=== PATIENT | male | born 1960 | race Caucasian/White ===

== ENCOUNTER 2019-06-23 09:53 | Inpatient (IN) ==
--- NOTE | 2019-06-15 15:35 | EKG Report ---
Test Performed on : 06/15/2019 3:19:48 PM Test Reason : PAT Blood Pressure : / mmHG Vent. Rate : 092 BPM Atrial Rate : 092 BPM P-R Int : 154 ms QRS Dur : 094 ms QT Int : 396 ms P-R-T Axes : 053 037 082 degrees QTc Int : 489 ms Normal sinus rhythm. ST & T wave abnormality, consider lateral ischemia Prolonged QT Abnormal ECG No previous ECGs available Confirmed by Kin Ramsey MD ([id number]) on 06/16/2019 6:25:12 AM
[2019-06-23] MEDS ORDERED: KEFZOL 1 GM/D5W 2 GM/100 ML IVPB ONE (10:28)
[2019-06-23] MEDS ORDERED: LR 1,000 ML ONE ×2 (10:28→11:59)
--- NOTE | 2019-06-23 10:35 | EKG Report ---
Test Performed on : 06/23/2019 10:24:36 AM Test Reason : preop Blood Pressure : / mmHG Vent. Rate : 092 BPM Atrial Rate : 092 BPM P-R Int : 150 ms QRS Dur : 090 ms QT Int : 374 ms P-R-T Axes : 037 038 008 degrees QTc Int : 462 ms Normal sinus rhythm. Nonspecific ST and T wave abnormality Abnormal ECG When compared with ECG of 15-JUN-2019 15:19, Nonspecific T wave abnormality now evident in Inferior leads T wave inversion no longer evident in Lateral leads Confirmed by Kin Ramsey MD ([id number]) on 06/23/2019 12:26:22 PM
[2019-06-23 10:49] LABS: HEMATOCRIT 29.1 % (42.0-52.0); HEMOGLOBIN 8.8 g/dL (14.0-18.0); MCH 23.5 PG (27-31); MCHC 30.2 g/dL (33-37); MCV 77.6 FL (81-99); MPV 9.1 FL (7.4-10.4); RBC 3.75 XMIL (4.7-6.1); RDW 16.7 % (11.5-14.5); WBC 5.58 X1000 (4.8-10.8)
[2019-06-23 11:07] LABS: AGAP 11; BUN 12 mg/dL (8-22); CHLORIDE 97 mmol/L (98-107); COSMO 280; CREATININE 0.4 mg/dL (0.7-1.2); ESTIMATED GFR > 60; GLUCOSE 280 mg/dL (70-104); SODIUM 135 mmol/L (136-145); TCO2 27 mmol/L (25-35)
[2019-06-23] MEDS ORDERED: XYLOCAINE-MPF 2% ONE (11:25)
[2019-06-23] MEDS ORDERED: NORCURON ONE (11:25)
[2019-06-23] MEDS ORDERED: SODIUM CHLORIDE 0.9% 10 ML ONE (11:25)
[2019-06-23] MEDS ORDERED: DIPRIVAN 1% ONE (11:26)
[2019-06-23] MEDS ORDERED: SUFENTA ONE (11:44)
[2019-06-23] MEDS ORDERED: SENSORCAINE 0.25%/EPI 1:200,000 ONE (11:58)
[2019-06-23] MEDS ORDERED: NS 250 ML ONE (11:59)
[2019-06-23] MEDS ORDERED: XYLOCAINE 1% ONE (11:59)
[2019-06-23] MEDS ORDERED: XYLOCAINE 1%/EPI 1:100,000 ONE (11:59)
[2019-06-23] MEDS ORDERED: HUMULIN R ONE (12:31)
[2019-06-23] MEDS ORDERED: HUMULIN R SUBQ ONE (12:33)
[2019-06-23] MEDS ORDERED: ROBINUL ONE (13:56)
[2019-06-23] MEDS ORDERED: NEOSTIGMINE ONE (13:56)
[2019-06-23] MEDS ORDERED: OFIRMEV 1000 MG/ISOTONIC SOLN 1,000 MG/100 ML BOTTLE ONE (14:19)
[2019-06-23] MEDS: DILAUDID ONE ×3 (15:25→20:00)
[2019-06-23] MEDS: LR 1,000 ML ONE ×2 (15:51→19:42)
[2019-06-23] MEDS ORDERED: ZOFRAN IV PRN (16:00)
[2019-06-23] MEDS: LR 1,000 ML IV SCH (16:30)
--- NOTE | 2019-06-23 17:08 | OPERATIVE NOTE ---
PROCEDURE DATE: 06/23/2019 PREOPERATIVE DIAGNOSIS: Rectal carcinoma. POSTOPERATIVE DIAGNOSIS: Rectal carcinoma. PROCEDURE PERFORMED: 1. Ultrasound-guided right internal jugular vein port with fluoroscopy less than 1 hour. 2. Laparoscopic assisted diverting loop ileostomy. SURGEON: Kin Worley SPECIMENS: None. ANESTHESIA: General. 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 Diversion is indicated for obstructive symptoms and port for neoadjuvant therapy. OPERATIVE FINDINGS: Ultrasound of the right neck showed a compressible internal jugular vein. Final fluoroscopic image scope showed good position of the catheter in the superior vena cava- atrial junction with no kinking of the catheter. OPERATIVE FINDINGS: [facility] appearing ascites. There is an omental containing umbilical hernia. There is no other evidence of metastatic disease in the liver or the peritoneum. OPERATIVE NOTE: Risks benefits and alternatives were discussed with the patient. He consented to the procedure. He was seen preoperatively and the surgical site was confirmed and his ostomy site was marked by our ostomy nurse. He was taken to the operating room and placed in the supine position. General anesthesia induced without complication. All bony prominences were padded. His neck, chest, abdomen was prepped widely and draped. After a time-out, he was placed in Trendelenburg and focused ultrasound was performed of the right neck. The vein was accessed on the first pass. Dark, nonpulsatile venous blood was noted on return. Wire was threaded easily. Subcutaneous pouch was made. After confirming that the wire coursed directly into the vein and did not traverse the artery and that it resided on the right side of the heart with fluoroscopy. The catheter was tunneled from incision in the chest. Incision made large in the neck and the tract was serially dilated. The catheter was advanced and withdrawn until it was in good position. It was trimmed and connected to the port placed in the port withdrew blood and flushed without resistance. It was secured with Prolene suture. Final fluoroscopic image was appropriate. We reapproximated the dermis with interrupted 3-0 Vicryl sutures. Skin was closed with 4-0 Monocryl and Dermabond was applied. At this point, we occluded the incision. We made a supraumbilical midline incision with and carried this down the fascia incised the fascia and opened the abdomen in open controlled fashion. A 12 mm Boo trocar was placed. We insufflated the abdomen. We inspected and there was no injury to underlying structures. Two additional 5 mm trocars were placed, 1 in the suprapubic location and 1 in the left lower quadrant. Please note, he had a Vasquez catheter placed as well. The omentum was reduced out of his umbilical hernia. We identified an area of the terminal ileum and identifying the base the cecum and running small bowel backwards until we identified a portion that would reach the right lower quadrant abdominal wall. At this point, we made our incision in him, incised the fascia, split the muscle and we identified the bowel that we previously and brought this out through the Jose wound protector. There was no tension whatsoever. It eviscerated nicely. We reapproximated the fascia with Vicryl sutures. Skin was closed with 4-0 Monocryl and Dermabond was applied. We then excluded the wounds and made a transverse enterotomy in a Brooking fashion with 0 Vicryl, matured the ileostomy. He tolerated it well. No complications, patent below the fascia. Ostomy appliance was applied. He was awoken transferred to recovery. I spoke with family. cc: Luke Ragsdale MD
[2019-06-23 18:03] LABS: URINE SOURCE CATH
[2019-06-23 18:08] LABS: BILIRUBIN URINE NEGATIVE (NEGATIVE); BLOOD URINE NEGATIVE (NEGATIVE); COLOR YELLOW; GLUCOSE URINE 500 mg/dL (NEGATIVE); KETONE URINE NEGATIVE (NEGATIVE); LEUKOCYTES URINE NEGATIVE (NEGATIVE); NITRITE URINE NEGATIVE (NEGATIVE); PH URINE 6.5; PROTEIN URINE 30 mg/dL (NEGATIVE); SP GRAVITY URINE 1.026; TURBIDITY URINE CLEAR (CLEAR); UROBILINOGEN URINE 2 mg/dL (NORMAL)
--- NOTE | 2019-06-23 18:16 | Diag Imaging Result Doc PS360 ---
EXAM: PORT A CATH FLUORO INDICATION: INSERTION PORT RIGHT SIDE TECHNIQUE: COMPARISON: None. FINDINGS: A single spot fluoroscopic image was provided, which was performed during right Port-A-Cath placement by Dr. Bennie Ragsdale. The tip of the Port-A-Cath is identified. It appears to project over the lower SVC in the expected position. IMPRESSION: As above. Please correlate with live fluoroscopic imaging. Electronically signed by Mono Lott 06/23/2019 6:14 PM
[2019-06-23] MEDS: MORPHINE IV PRN (19:28)
[2019-06-23] MEDS: HUMULIN R SUBQ SCH ×2 (19:28→22:08)
[2019-06-23 19:37] LABS: UR EPITHELIAL CELLS <10 /HPF (<10); URINE BACTERIA NEGATIVE /HPF; URINE RBC <10 /HPF (<10); URINE WBC <10 /HPF (<10)
[2019-06-23] MEDS: PERIDEX MT SCH (19:59)
[2019-06-23] MEDS: OFIRMEV 1000 MG/ISOTONIC SOLN 1,000 MG/100 ML BOTTLE IV SCH (19:59)
[2019-06-24] MEDS: LR 1,000 ML IV SCH (00:01)
[2019-06-24] MEDS: OFIRMEV 1000 MG/ISOTONIC SOLN 1,000 MG/100 ML BOTTLE IV SCH ×3 (02:19→13:34)
[2019-06-24] MEDS: MORPHINE IV PRN (04:17)
[2019-06-24] MEDS: ULTRAM PO PRN ×3 (05:22→19:42)
[2019-06-24] MEDS: PRILOSEC PO SCH ×2 (05:22→06:20)
[2019-06-24 06:06] LABS: HEMATOCRIT 28.3 % (42.0-52.0); HEMOGLOBIN 8.2 g/dL (14.0-18.0); IMM GRAN# 0.02 X1000 (0.0-0.04); IMM GRAN% 0.4 % (0.0-0.5); LYMPH# 1.01 X1000 (1.2-3.4); LYMPH% 22.2 % (20.5-51.1); MCH 22.6 PG (27-31); MONO# 0.32 X1000 (0.11-0.59); MPV 9.4 FL (7.4-10.4); NEUT% 70.4 % (42.2-75.2); PLT 326 X1000 (130-400); RBC 3.63 XMIL (4.7-6.1); RDW 17.3 % (11.5-14.5); WBC 4.55 X1000 (4.8-10.8)
[2019-06-24] MEDS: HUMULIN R SUBQ SCH ×5 (06:36→23:16)
[2019-06-24 06:52] LABS: AGAP 9; BUN 9 mg/dL (8-22); CALCIUM 7.4 mg/dL (8.8-10.2); CHLORIDE 101 mmol/L (98-107); COSMO 288; CREATININE 0.4 mg/dL (0.7-1.2); ESTIMATED GFR > 60; GLUCOSE 244 mg/dL (70-104); POTASSIUM 4.2 mmol/L (3.5-5.1); SODIUM 141 mmol/L (136-145); TCO2 31 mmol/L (25-35)
[2019-06-24] MEDS: HYTRIN PO SCH (09:29)
[2019-06-24] MEDS: COREG PO SCH (09:29)
[2019-06-24] MEDS: PERIDEX MT SCH ×2 (09:30→23:17)
[2019-06-24] MEDS: LOVENOX SUBQ SCH (09:30)
[2019-06-24] MEDS: NS 1,000 ML IV SCH ×2 (09:35→19:00)
[2019-06-24 09:53] LABS: HEMOGLOBIN A1C 10.3 % (4.8-6.0)
[2019-06-24] MEDS ORDERED: INSULIN PEN NEEDLES ONE (14:28)
--- NOTE | 2019-06-24 14:43 | CONSULTATION ---
DATE OF CONSULTATION: 06/24/2019 CONSULTATION REASON: Hyperglycemia. HISTORY OF PRESENT ILLNESS: Mr. 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 Yesterday, on 06/23/2019, he underwent a port placement and laparoscopic diverting loop ileostomy with Dr. Bennie Ragsdale. He continued to have elevated blood glucose levels throughout the night, so the hospitalist service was consulted for medical management. OTHER HISTORY: Diabetes mellitus, taken off his metformin a little over a month ago. Enlarged prostate, hypertension and lower extremity edema. PAST MEDICAL HISTORY: 1. Hypertension. 2. Lower extremity edema. 3. Benign prostatic hypertrophy. 4. Diabetes mellitus, recently taken off metformin. 5. 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 PAST SURGICAL HISTORY: 1. Left thumb. 2. Left knee meniscus repair. 3. Right-sided port placement on 06/23/2019. 4. Laparoscopic diverting loop ileostomy performed on 06/23/2019. SOCIAL HISTORY: Patient dips 1 can of chew tobacco per day and has done so since the age of 29 or 30. No illicit drug use. No alcohol. He is with children and grandchildren and a grandchild that was recently diagnosed with cancer as well. FAMILY HISTORY: Mother with unknown type of cancer in the 60s. A sister with ovarian cancer. One brother with an ME, who recently had a CABG at the age of 62 and another brother who is from an ME at the age of 61. ALLERGIES: Ferumoxytol causes shortness of breath. HOME MEDICATIONS: Coreg 25 mg p.o. daily, Prilosec 40 mg p.o. daily, Terazosin 10 mg p.o. daily. PHYSICAL EXAMINATION: Vital Signs: Temperature is 98.3 degrees, heart rate 69, respirations 18, blood pressure 130/66, O2 is 95% on room air. General: Mr. Vasquez is a pleasant 58-year-old male who is sitting up on the bed with speaking with Dr. Ragsdale in no acute distress. HEENT: Atraumatic, normocephalic. PERRL. Neck: Supple. Trachea midline. Cardiovascular: S1, S2 appreciated. No murmurs, gallops, rubs noted. Respiratory: Lung sounds clear bilaterally. He does have a right-sided port in place. Gastrointestinal: Soft, nontender, nondistended. Positive bowel sounds x4 quadrants. Ileostomy draining appropriately. Extremities: Patient does have some bilateral lower extremity edema, appears to be nonpitting. Neurologic: Patient is awake, alert, and oriented, follows commands. Moves all extremities. Converses appropriately. LABORATORY DATA: White count 4, hemoglobin 8, hematocrit 28. Sodium 141, potassium 4.2, BUN 9, creatinine 0.4, blood glucose 244. Hemoglobin A1c is 10.3. ASSESSMENT AND PLAN: 1. Uncontrolled diabetes mellitus type 2. Patient was taken off his metformin a little over a month ago. They reported he was having issues with constipation and diarrhea, so they thought his metformin, it might have been a side effect, so he was taken off that. He had not been replaced on any other p.o. or subcu insulin. He has been having uncontrolled blood glucoses for some time now, so we will initiate him on a moderate sliding scale and continue with q.4 hours blood glucoses, probably add him on some Levemir. His hemoglobin A1c was 10.3. 2. New diagnosis of rectal cell carcinoma with metastasis to the lung and liver. He has not started chemotherapy yet. He just underwent ileostomy and port placement with Dr. Ragsdale, who will continue with his care. He has an appointment next week with Dr. Roberts to review his PET scans and talk further about his treatment. 3. Hypertension. Continue Coreg. 4. Benign prostatic hypertrophy. Continue home medications. 5. Bilateral lower extremity edema. We will continue to monitor him and see how he does once he is up and walking the halls. 6. Further recommendation to follow physician evaluation, laboratory and diagnostic data. Dictated by DAISY Luna for Vadim Marcano MD Addendum: Patient seen and examined by myself. Agree with DAISY note. It reflects my assessment and plan. We were consulted for management of diabetes. Will start Levemir and sliding scale insulin. Will monitor patient closely. cc: Vadim Marcano MD [facility]
--- NOTE | 2019-06-24 15:36 | GENERAL SURGERY PROGRESS NOTE ---
DATE: 06/24/2019 SUBJECTIVE: He did okay overnight. Minimal pain. His ostomy has begun functioning. He is tolerating some clear liquids. No fevers. No tachycardia. He even prior to surgery has noted some lower extremity edema, which he voices again today. OBJECTIVE: Vital Signs: On exam, he is afebrile. Heart: There is no tachycardia. Abdomen: Soft. His ostomy is pink, viable, stool in the bag. Extremities: He does have bilateral lower extremity edema, symmetric, with no cellulitis. DIAGNOSTIC STUDIES: White count 4, hematocrit 28. Creatinine 0.4, glucose has been as high as 313 and as low as 190. Hemoglobin A1c was 10.3. ASSESSMENT AND PLAN: This is a 58-year-old with metastatic rectal carcinoma. He has undergone port placement and loop ileostomy placement. His ostomy is functioning. We will continue IV fluids and monitor his output. I have asked the hospitalists to see him with regards to his blood sugar management. I am going to get a lower extremity venous ultrasound as well today to rule out DVT, which was noted prior to him going to the operating room. Otherwise, he is on prophylactic Lovenox, appropriate home medications. We will continue to monitor him closely. cc: MD Vadim Worley MD
[2019-06-24] MEDS ORDERED: LEVEMIR SUBQ SCH (21:00)
[2019-06-25] MEDS: MORPHINE IV PRN (02:57)
[2019-06-25] MEDS: HUMULIN R SUBQ SCH ×4 (06:47→22:04)
[2019-06-25] MEDS: PRILOSEC PO SCH (06:47)
[2019-06-25 10:38] LABS: AGAP 9; BUN 9 mg/dL (8-22); CHLORIDE 96 mmol/L (98-107); COSMO 270; CREATININE 0.5 mg/dL (0.7-1.2); ESTIMATED GFR > 60; GLUCOSE 194 mg/dL (70-104); POTASSIUM 3.5 mmol/L (3.5-5.1); SODIUM 133 mmol/L (136-145); TCO2 28 mmol/L (25-35)
[2019-06-25] MEDS: COREG PO SCH (10:53)
[2019-06-25] MEDS: HYTRIN PO SCH (10:54)
[2019-06-25] MEDS: PERIDEX MT SCH ×2 (10:54→22:10)
[2019-06-25] MEDS: LOVENOX SUBQ SCH (10:54)
--- NOTE | 2019-06-25 10:57 | PROGRESS NOTE ---
DATE: 06/25/2019 SUBJECTIVE: Patient reports still abdominal pain. Denies any fever or chills. Blood sugar has been checked recently and is much better. OBJECTIVE: Vital Signs: Temperature 98.8 degrees, heart rate 86, respiratory 22, blood pressure 127/65, O2 saturation 94% on room air. General: This is a chronically ill-appearing and obese 58- year-old male, lying in bed, in no acute distress. Cardiovascular: S1, S2 heard. No murmurs, gallops, or rubs. Regular rate and rhythm. Respiratory: Clear bilaterally to auscultation. No work of breathing or using accessory muscles. Patient does have a right-sided port in place. Abdomen: Soft, nontender to palpation, nondistended. Bowel sounds present. There is ileostomy present draining appropriately. Extremities: No clubbing or cyanosis. 2+ pitting edema noted in both lower extremities. Neurological: Patient is alert and oriented x3. Moves 4 extremities. LABORATORY DATA: Reviewed. ASSESSMENT AND PLAN: 1. Uncontrolled diabetes mellitus type 2. The patient was taking metformin over a month ago and we were basically consulted for helping with diabetes control. We have started Levemir yesterday and the blood sugars are much better in the range of 160 to 200. I prefer to go ahead and increase the dose of that medication to 15 units at bedtime and see how he does. We are using sliding scale insulin as well as needed. 2. New diagnosis of rectal cell carcinoma with metastasis to lung and liver. Dr. Ragsdale and Dr. Roberts are following this patient. 3. Hypertension. Blood pressure is much better controlled. We will continue with carvedilol. 4. Benign prostatic hypertrophy. We will continue with Flomax. 5. Disposition. We will continue to monitor this patient closely. cc: Vadim Marcano MD
[2019-06-25] MEDS: PERCOCET-5 PO PRN (11:02)
--- NOTE | 2019-06-25 12:52 | Extremity Venous Study ---
PROCEDURE NAME: Venous U/S Bilateral Legs - 06/24/2019 PROCEDURE: Bilateral lower extremity venous duplex, and color flow imaging study using the [employer] Vivid E9 Ultrasound System with a 9L-D transducer. REFERRING PHYSICIAN: Asif Ragsdale MD. ID: 58-year-old male. LANCE CREWMEMBER/MLRS SERGEANT: Concepción. INDICATIONS: New onset bilateral lower extremity edema in a patient with rectal cancer. FINDINGS: The right common femoral vein and its branches, deep and superficial femoral veins, were satisfactorily imaged. They had flow through them and were compressible. Right popliteal vein and the deep veins below the right knee were all compressible and had flow through them. The superficial veins of the right lower extremity were compressible throughout their length. The left common femoral vein and its branches, deep and superficial femoral veins were also satisfactorily imaged. They had flow through them and were compressible. Left popliteal vein and the deep veins below the left knee were all compressible and had flow through them. The superficial veins of the left lower extremity were compressible throughout their length. INTERPRETATION: No evidence of acute deep or superficial venous thrombosis of the bilateral lower extremities. cc: MD Luke Diallo MD Cesar Garcia-Rodriguez, MD
[2019-06-25] MEDS: IMODIUM PO SCH ×3 (12:57→22:09)
[2019-06-25] MEDS: NS 1,000 ML IV SCH (16:06)
[2019-06-25] MEDS: TYLENOL PO PRN ×2 (18:08→22:09)
--- NOTE | 2019-06-25 18:13 | GENERAL SURGERY PROGRESS NOTE ---
DATE: 06/25/2019 SUBJECTIVE: Doing well. His ostomy has began functioning. Did leak once overnight. The recorded 750. He is tolerating a diet, is voiding. OBJECTIVE: His abdomen is soft. Incision is intact. Port is in place. IMAGING: He had a lower extremity venous ultrasound that showed no DVT. ASSESSMENT AND PLAN: A 58-year-old gentleman status post diverting loop ileostomy placement. We will advance the diet to a soft. I have asked Brielle to come by and see him today again. We will monitor the output. I have started Imodium 2 mg 4 times daily and will up titrate this as needed, but anticipate possibly home over the weekend. cc: MD Vadim Worley MD MTDD
[2019-06-25] MEDS ORDERED: LEVEMIR SUBQ SCH (21:00)
[2019-06-26] MEDS: PERCOCET-5 PO PRN (03:56)
[2019-06-26 06:16] LABS: AGAP 4; BUN 10 mg/dL (8-22); CALCIUM 7.8 mg/dL (8.8-10.2); CHLORIDE 97 mmol/L (98-107); COSMO 269; CREATININE 0.5 mg/dL (0.7-1.2); ESTIMATED GFR > 60; GLUCOSE 196 mg/dL (70-104); POTASSIUM 3.2 mmol/L (3.5-5.1); SODIUM 132 mmol/L (136-145); TCO2 31 mmol/L (25-35)
[2019-06-26] MEDS: IMODIUM PO SCH ×2 (06:54→10:30)
[2019-06-26] MEDS: HUMULIN R SUBQ SCH (07:16)
[2019-06-26 07:32] VITALS: BP 121/58
[2019-06-26] MEDS ORDERED: POTASSIUM CHLORIDE 40 MEQ/SWI 40 MEQ/100 ML IVPB IV ONE (08:50)
[2019-06-26] MEDS: COREG PO SCH (10:32)
[2019-06-26] MEDS: HYTRIN PO SCH (10:33)
[2019-06-26] MEDS: LOVENOX SUBQ SCH (10:34)
[2019-06-26] MEDS: PERIDEX MT SCH (10:34)
[2019-06-26] MEDS ORDERED: KLOR-CON PO ONE (10:40)
--- NOTE | 2019-06-26 13:39 | DISCHARGE SUMMARY ---
ADMISSION DATE: 06/23/2019 DISCHARGE DATE: 06/26/2019 SUBJECTIVE: Doing well. His ostomy is functioning. He has become comfortable pouching at 1250 recorded with 2 mg of Imodium 4 times daily. He is tolerating p.o. and drinking plenty of water. Urine output has been adequate. Blood sugars have been much better controlled on 15 units of insulin Levemir. On exam, his ostomy is pink, with stool in the bag. Incisions are intact. Port is intact. HOSPITAL COURSE: Patient was admitted on the day of surgery for a port placement and diverting loop ileostomy for rectal cancer. The ostomy began working on the day of the surgery and output increased to appropriate level and Imodium was started. Hospitalists were consulted for insulin recommendations and glucose control. This was much better controlled at the time of discharge and he was felt safe for discharge position after education by our ostomy nurse. Follow up appointment is with me next week. MEDICATIONS: He will take 4 mg of Imodium 4 times daily. Will call if his output increases above 1500 mL before initiation of Lomotil. I gave him a prescription for [place] as well as his insulin and have given him instructions on use and strict regular checks at home. This was given in both written and verbal format. DISPOSITION: Home to self-care with the care of his . Postop restrictions were given as well. cc: MD Jose Worley MD
== END 2019-06-26 11:04 | disposition home or self-care (01) | DRG 330 ==
LOC: SURHOLD 09:53 → 4N 13:29
PROVIDERS: ADMIT Internal Medicine; ATTEND Surgery

== ENCOUNTER 2019-07-15 18:45 | Observation (INO) ==
[2019-07-15 19:10] VITALS: BP 88/51
[2019-07-15 20:02] LABS: EOS# 0.02 X1000 (0.0-0.7); EOS% 0.3 % (0.0-10.0); HEMATOCRIT 28.3 % (42.0-52.0); HEMOGLOBIN 8.7 g/dL (14.0-18.0); IMM GRAN# 0.04 X1000 (0.0-0.04); IMM GRAN% 0.6 % (0.0-0.5); LYMPH# 0.37 X1000 (1.2-3.4); LYMPH% 5.7 % (20.5-51.1); MCH 23.2 PG (27-31); MCHC 30.7 g/dL (33-37); MCV 75.5 FL (81-99); MONO# 0.01 X1000 (0.11-0.59); MONO% 0.2 % (1.7-9.3); MPV 9.4 FL (7.4-10.4); NEUT# 6.03 X1000 (1.4-6.5); NEUT% 93.2 % (42.2-75.2); PLT 269 X1000 (130-400); RBC 3.75 XMIL (4.7-6.1); RDW 17.5 % (11.5-14.5); WBC 6.47 X1000 (4.8-10.8)
[2019-07-15 20:19] LABS: AGAP 13; BUN 20 mg/dL (8-22); CHLORIDE 94 mmol/L (98-107); COSMO 273; CREATININE 0.6 mg/dL (0.7-1.2); ESTIMATED GFR > 60; GLUCOSE 266 mg/dL (70-104); POTASSIUM 3.8 mmol/L (3.5-5.1); SODIUM 130 mmol/L (136-145); TCO2 23 mmol/L (25-35)
[2019-07-15 20:20] LABS: ALB/GLOB RATIO 0.9; ALBUMIN 3.1 g/dL (3.5-5.0); ALKALINE PHOSPHATASE 168 U/L (32-122); GOT 27 U/L (10-34); GPT 15 U/L (10-44); TOTAL BILIRUBIN 0.71 mg/dL (0.20-1.00); TOTAL PROTEIN 6.5 g/dL (6.3-8.3)
--- NOTE | 2019-07-15 20:48 | Diag Imaging Result Doc PS360 ---
CHEST-2 VIEWS - 07/15/2019 INDICATION: Possible Sepsis, Weakness. COMPARISON: None FINDINGS: There is a right chest port in good position. There is mild cardiomegaly. No infiltrates or edema. No pneumothorax or pleural effusion. There is a compression fracture at L1. IMPRESSION: Cardiomegaly. Electronically signed by Taqueria Prasad 07/15/2019 8:45 PM
[2019-07-15] MEDS ORDERED: LEVAQUIN 500 MG/D5W 500 MG/100 ML IVPB IV ONE (21:44)
--- NOTE | 2019-07-15 21:44 | PROVIDER DOCUMENTATION ---
This chart was entered by Caty Berrios Scribe, acting as scribe for Rene Jean MD. HPI-Fever - General Chief Complaint: SEPSIS ALERT - D Stated Complaint: FEVER (CHEMO PT.) Time Seen by Provider: 07/15/19 19:54 Source: patient, family Allergies/Adverse Reactions: Patient Allergies Allergy/AdvReac Type Severity Reaction Status Date / Time ferumoxytol [From Feraheme] AdvReac SHORTNESS Verified 06/23/19 10:52 OF BREATH Home Medications: Home Medication List Medication Instructions Recorded Confirmed Last Taken Type Carvedilol [Coreg] 25 mg PO DAILY 06/15/19 06/23/19 06/22/19 17:00 History Omeprazole [Prilosec] 40 mg PO DAILY 06/15/19 06/23/19 06/22/19 21:00 History Terazosin HCl 10 mg PO DAILY 06/15/19 06/23/19 06/22/19 17:00 History - History of Present Illness-Fever Nature of Presenting Problem: pt is a 58 yr old male presenting with complaint of headache and fever, pt is currently undergoing chemo for stage 4 rectal cancer with mets to liver and lung. today reports temp of 104.5, no response to Tylenol and cold clothes. pt completed 3 day round of chemo therapy today, this was his 1st chemo tx. pt had abdominal surgery 3 weeks ago. pt denies any chest pain or shortness of breath, he does report headache has improved but not resolved. Fever Severity/Quality: reports: greater than 102 F (104.5) Onset/Duration: reports: this afternoon Timing: reports: still present Severity: reports: severe Context: reports: cancer-chemotherapy Recent Illness?: reports: none Fever Therapy CABLEMAN: Initiated cold remedies (no relief), Initiated Tylenol (no relief) Cognitive Baseline: alert, oriented x3 Modifying Factors: improves with: analgesics (tylenol-no relief), cold/heat therapy (cold cloths-no relief) Associated Symptoms: reports: fatigue, fever/chills, headaches, malaise, nausea, weakness. denies: back/neck pain, chest pain, cough, diarrhea, dizziness, vomiting Similar Symptoms Previously?: No Recently seen or treated by another doctor?: Yes - Glascow Coma Score Best Eye Response ([place]): (4) open spontaneously Best Verbal Response ([place]): (5) oriented Best Motor Response ([place]): (6) obeys commands [place] Total: 15 Review of Systems - Adult - REVIEW OF SYSTEMS - ADULT Constitutional: reports: chills, fever, fatique Eyes: reports: no symptoms reported Ears, Nose, Mouth & Throat: reports: no symptoms reported Cardiovascular: reports: no symptoms reported Respiratory: denies: cough, shortness of breath Gastrointestinal: reports: nausea. denies: abdominal pain, diarrhea, vomiting Genitourinary: reports: no symptoms reported Musculoskeletal: reports: no symptoms reported Integumentary: reports: no symptoms reported Neurological: reports: headache/migraines. denies: syncope Psychiatric: reports: no symptoms reported Endocrine: reports: no symptoms reported Hematologic/Lymphatic: reports: no symptoms reported Allergic/Immunologic: reports: no symptoms reported All Other Systems: Reviewed and Negative Past History - Adult - PAST MEDICAL HISTORY-ADULT Review of Records: reports: Nursing Assessment Review, Medications Reviewed, Social history reviewed & non-contributory. Major Childhood Illnesses: reports: denies history Cardiovascular: reports: denies history Respiratory: reports: denies history Gastrointestinal: reports: cancer (rectal CA with mets to liver and lung) Obstetrical/Gynecological: reports: denies history Genitourinary: reports: denies history Musculoskeletal: reports: denies history Neurological: reports: denies history Endocrine/Immune: reports: denies history Other Conditions: reports: denies history - IMMUNIZATION STATUS Childhood Immunizations: See Nurse Assessment Flu Vaccine: See Nurse Assessment - FAMILY HISTORY Family History: reviewed, not pertinent - SOCIAL HISTORY Living Situation: family Physical Exam-General - PHYSICAL EXAM-ADULT Initial Vital Signs Reviewed: Yes - CONSTITUTIONAL General Appearance: no apparent distress, lethargic, slow to respond - EYES Eyes: PERRL/EOMI - HEAD, EARS, NOSE, MOUTH & THROAT HENMT: normocephalic/atraumatic, moist mucous membranes, normal ENT inspection - NECK Neck: non-tender, full range of motion, supple, normal inspection - RESPIRATORY Respiratory: chest non-tender, lungs clear, normal breath sounds, increased rate - CARDIOVASCULAR Cardiovascular: normal peripheral pulses, tachycardia - GASTROINTESTINAL (ABDOMEN) Abdominal Exam: normal bowel sounds, non tender, soft - LYMPHATIC Lymphatic: no adenopathy - MUSCULOSKELETAL Back Exam: normal inspection Extremity: normal range of motion, non-tender, normal inspection, no pedal edema - SKIN Integumentary: normal turgor, pallor - NEUROLOGIC Neurologic: grossly normal - PSYCHIATRIC Psych/Mental Status: normal mood/affect Progress - PLAN OF CARE/RESULTS Progress/Plan/Lab Results: Vital Signs - 8 hr 07/15/19 19:07 07/15/19 23:59 Temperature 103.0 F H 101.1 F H Pulse Rate 102 H Respiratory Rate 19 Blood Pressure 88/51 O2 Sat by Pulse Oximetry 95 Laboratory Results - last 24 hr 07/15/19 07/15/19 07/15/19 19:35 19:35 19:35 WBC 6.47 RBC 3.75 L Hgb 8.7 L Hct 28.3 L MCV 75.5 L MCH 23.2 L MCHC 30.7 L RDW Std Deviation 17.5 H Plt Count 269 MPV 9.4 Immature Gran % (Auto) 0.6 H Neut % (Auto) 93.2 H Lymph % (Auto) 5.7 L Martin % (Auto) 0.2 L Eos % (Auto) 0.3 Baso % (Auto) 0.0 Immature Gran # (Auto) 0.04 Neut # (Auto) 6.03 Lymph # (Auto) 0.37 L Martin # (Auto) 0.01 L Eos # (Auto) 0.02 Baso # (Auto) 0.00 Sodium 130 L Potassium 3.8 Chloride 94 L Carbon Dioxide 23 L Anion Gap 13 BUN 20 Creatinine 0.6 L Estimated GFR/1.73 m2 > 60 BUN/Creatinine Ratio 33 Glucose 266 H Calculated Osmolality 273 Calcium 8.0 L Total Bilirubin 0.71 AST 27 ALT 15 Alkaline Phosphatase 168 H Total Protein 6.5 Albumin 3.1 L Globulin 3.4 Albumin/Globulin Ratio 0.9 Plasma Lactate 1.3 Orders Category Date Time Status CHEST-2 VIEWS [RAD] Stat Exams 07/15/19 19:[address] THORAX W/O CONTRAST [CT] Stat Exams 07/16/19 00:06 Ordered BLOOD CULTURE [BLDCUL] Stat Lab 07/15/19 21:27 Results CBC WITH ELECTRONIC DIFF [HEME] Stat Lab 07/15/19 19:35 Completed CMP [COMPREHENSIVE METABOLIC PANEL] [CHEM] Stat Lab 07/15/19 19:35 Completed LACTATE, PLASMA [CHEM] Stat Lab 07/15/19 19:35 Completed LACTATE, PLASMA [CHEM] Stat Lab 07/15/19 22:09 Uncollected URINALYSIS W/POSS RFLX CULT [URINALYSIS] Stat Lab 07/15/19 19:15 Uncollected URINE CULTURE [RM] Stat Lab 07/16/19 00:06 Uncollected 0.9% Sodium Chloride Inj [Ns] 1,000 ml Med 07/16/19 00:00 Active IV 999 mls/hr Levofloxacin 500 mg/D5w [Levaquin 500 mg/D5w] Med 07/15/19 21:44 Discontinued 500 mg in 100 ml IV NOW Oxycodone/APAP 10 mg/325 mg [Percocet-10] Med 07/16/19 00:07 Discontinued 1 each PO NOW ONE Vancomycin 1 gm/Ns Med 07/16/19 00:19 Active 1 gm in 250 ml IV NOW Transfer/Admit Order [TRANSFER] Routine Transfer 07/16/19 00:08 Ordered attempted to speak to oncology, paged x 2 without response Result Diagrams: 07/15/19 19:35 07/15/19 19:35 - EKG 1 Time of EKG reading by physician:: 19:43 EKG Read and Signed by:: Rene Jean EKG Interpretation (*Must complete 3 of following elements*): Abnormal (non specific ST abnormality) Rate: 100 Rhythm: nsr [place]: normal QRS: normal [place] Interval: normal - XRAY 1 XRAY Study: Chest Impression: Abnormal ( CHEST-2 VIEWS - 07/15/2019 INDICATION: Possible Sepsis, Weakness. COMPARISON: None FINDINGS: There is a right chest port in good position. There is mild cardiomegaly. No infiltrates or edema. No pneumothorax or pleural effusion. There is a compression fracture at L1. IMPRESSION: Cardiomegaly. Electronically signed by Taqueria Prasad 07/15/2019 8:45 PM 07/15/192044 Interpreting Physician: Taqueria Prasad MD Dictated Date/Time: 07/15/192043 cc: Jose C Burton ; Jyothi Roberts MD) Comparison with other Films: no prior study - CONSULTS/PCP/HOSPITALIST Notification #1 *Consult/PCP/Hospitalist*: d/w Dr Iglesias Time Discussed: 23:15 Consult Disposition: Admit (admit to hospitalist.) #2 Consult: d/w Dr Meza Time Discussed: 23:25 Reason/Comments: ua pending Consult Disposition: Admit Departure - Departure Date of Disposition Decision: 07/15/19 Time of Disposition Decision: 23:30 DIAGNOSIS: Sepsis, Fever Disposition: ADMITTED INPATIENT 09 Certified Medical Emergency: Emergent Condition: Stable Referrals and Follow-Ups: Jyothi Roberts MD [Primary Care Provider] - - Critical Care Note This patient required my direct & personal management of CC.: No Attestation - Physician/ PARISA Attestation Patient care was provided by Advanced Practice Provider:: No The physician spent face to face time with patient:: Yes Advanced Practice Provider documentation review:: Supervising physician onsite and consulted in the evaluation and care of this patient. The physician did have a face to face encounter with the patient. This chart was documented by the indicated scribe, (Caty Berrios Scribe) and accurately reflects the services I performed and decisions made by me, Rene Jean MD, as attested by the provider's signature.
[2019-07-16] MEDS ORDERED: NS 1,000 ML IV ONE
[2019-07-16] MEDS ORDERED: PERCOCET-10 PO ONE (00:07)
[2019-07-16] MEDS ORDERED: VANCOMYCIN 1 GM/NS 1 GM/250 ML IVPB IV ONE (00:19)
--- NOTE | 2019-07-16 01:09 | HISTORY AND PHYSICAL ---
REASON FOR ADMISSION: Persistent high temperatures and weakness. HISTORY OF PRESENT ILLNESS: Mr. Eduard Vasquez is an unfortunate 58-year-old male with sudden history of rectal stage IV cancer and a history of BPH and hypertension. A few weeks ago, underwent diverting ileostomy loop. He has also been undergoing chemotherapy at Dr. Roberts's place, had the 3rd dose of chemotherapy today, and has had it consecutively over the last 3 days. When he got home he said he felt very weak and became very clammy and lightheaded, and his checked his temperature. His temperature was 104.3 degrees. He tends to run very low grade temperatures, less than 101 degrees, and she had tried giving him some Tylenol, this did not work. This concerned her and she brought him to the hospital. The patient only admits to having a brief moments of shortness of breath, but no cough. Admits to having some subjective dysuria, but no hematuria. He denies any frequent need to change his ileostomy bag. REVIEW OF SYSTEMS: Twelve system review was done. Positive findings per HPI. ALLERGIES: Ferumoxytol. HOME MEDICATIONS: Have been reconciled, but he does take Percocet 10 mg as needed for pain. SURGICAL HISTORY: He has had an arthroscopic knee surgery and the aforementioned ileostomy. SOCIAL HISTORY: Uses 2 cans of smokeless tobacco per week. No alcohol use. No illicit drug use. and lives with . FAMILY HISTORY: Not reviewed. LABORATORY WORK: White count 6000, hemoglobin and hematocrit 8 and 28, MCV 75, platelet count 269,000, with 93% neutrophils. Sodium is 130, glucose 266, alkaline phosphatase 168, BUN 20, creatinine 0.6, lactate 1.3. Chest film shows no infiltrates. Urinalysis still pending. PHYSICAL EXAMINATION: VITAL SIGNS: Temperature 101 degrees, heart rate 102, respiratory rate 19, blood pressure 80/51. GENERAL: He is a 58-year-old, middle-aged, man who is alert and oriented to person, place, and time. HEENT: Head is normocephalic and atraumatic. Eyes: CHAYO, EOMI. He is anicteric and not pale. He has oropharyngeal exudates or erythema noted. NECK: Supple. No JVD or carotid bruit. No thyromegaly. CHEST: Patient's port is in the right pectoral area. There is no surrounding erythema around the port site. Chest with questionable few bibasilar crepitations. No wheezes. CARDIOVASCULAR: First and second sounds heard. No gallops, murmurs, or rubs. Rhythm is regular. ABDOMEN: Protuberant, soft with an ileostomy in the right lower quadrant area. Stool in bag is brown. No blood. Rectal exam is deferred. EXTREMITIES: Patient has trace edema in lower extremities. Distal pulse volumes are diminished, regular, symmetrical. No clubbing or peripheral cyanosis. NEUROLOGICAL: No gross focal deficits. SKIN: Intact. No breakdown, lesions, erythema. MUSCULOSKELETAL: Grossly normal. ASSESSMENT: 1. Fever in a patient with active chemotherapy. Etiology yet to be determined. 2. Rectal cancer stage IV. 3. Hypertension. 4. Hyperglycemia. Rule out type 2 diabetes. 5. Anemia related to neoplasm. 6. Dehydration. PLAN: Patient will be treated with broad-spectrum antibiotics pending urine culture. If urine culture and noncontrast CT scan show no overt symptoms, may need to deescalate pending blood cultures. At this point in time, the only possible source is either respiratory from his cough, shortness of breath, and chest findings versus urinary from complaints of dysuria. The patient will be aggressively resuscitated with IV crystalloids. Dr. Roberts will be consulted to see the patient. cc: Ashley Meza MD
--- NOTE | 2019-07-16 01:32 | EKG Report ---
Test Performed on : 07/15/2019 7:42:49 PM Test Reason : CP Blood Pressure : / mmHG Vent. Rate : 100 BPM Atrial Rate : 100 BPM P-R Int : 144 ms QRS Dur : 090 ms QT Int : 350 ms P-R-T Axes : 025 046 -13 degrees QTc Int : 451 ms Normal sinus rhythm. Nonspecific ST abnormality Abnormal ECG No previous ECGs available Unconfirmed Result
--- NOTE | 2019-07-16 08:43 | Diag Imaging Result Doc PS360 ---
EXAM: CT THORAX W/O CONTRAST INDICATION: fever dyspnea TECHNIQUE: This exam was performed using automated exposure control, adjustment of mA or kV according to patient size, and/or use of iterative reconstruction technique. COMPARISON: 06/10/2019 FINDINGS: The 1.8 cm right middle lobe mass seen on the previous study has not changed significantly. The 4 mm nodule abutting minor fissure in the right middle lobe is also stable. Focal fibrosis and traction bronchiectasis in the medial right lung base is stable. There is mild mosaic attenuation predominantly at the lung bases indicating mild air trapping. No new consolidation is appreciated, otherwise. There is no pleural fluid collection and no pneumothorax. There are calcified mediastinal and left hilar lymph nodes indicating prior granulomatous disease. There is no evidence of new mediastinal or hilar lymphadenopathy. Limited views of the upper abdomen reveals stable splenomegaly and approximately stable cluster of vague masses involving the right hepatic lobe. IMPRESSION: 1.Stable right middle lobe mass. 2.Stable scarring and traction bronchiectasis at the medial right lung base. 3.Groundglass mosaic attenuation in the dependent portions of the lungs suggesting mild air trapping. 4.Essentially stable chest, otherwise. Electronically signed by Mono Lott 07/16/2019 8:41 AM
--- NOTE | 2019-07-17 06:56 | DISCHARGE SUMMARY ---
ADMISSION DATE: 07/15/2019 DISCHARGE DATE: 07/16/2019 The patient left against medical advice on the same day of admit. Dictated by DAISY Soni for Ashley Meza MD cc: DAISY Soni MD
== END 2019-07-16 01:20 | disposition left against medical advice (07) ==
LOC: ED 18:45 → INTOOBSV 18:46 → 4N 18:46 → EDIPHOLD 07-16 01:12
PROVIDERS: ATTEND Internal Medicine

== ENCOUNTER 2019-07-16 14:23 | Inpatient (IN) ==
[2019-07-16] MEDS ORDERED: ZOSYN 3.375 GM in NS 50 ML IV ONE (17:07)
[2019-07-16] MEDS ORDERED: NS 1,000 ML IV ONE (17:10)
[2019-07-16] MEDS ORDERED: EMLA CREAM TOP ONE (17:13)
--- NOTE | 2019-07-16 17:13 | PROVIDER DOCUMENTATION ---
HPI-Fever - General Chief Complaint: Abnormal Lab[s] Stated Complaint: ABNORMAL LABS Time Seen by Provider: 07/16/19 15:25 Source: patient Allergies/Adverse Reactions: Patient Allergies Allergy/AdvReac Type Severity Reaction Status Date / Time ferumoxytol [From Feraheme] AdvReac SHORTNESS Verified 07/16/19 17:32 OF BREATH Home Medications: Home Medication List Medication Instructions Recorded Confirmed Last Taken Type Carvedilol [Coreg] 25 mg PO DAILY 06/15/19 07/16/19 07/16/19 History 25 MG Omeprazole [Prilosec] 40 mg PO DAILY 06/15/19 07/16/19 07/16/19 History 40 MG Terazosin HCl 10 mg PO DAILY 06/15/19 07/16/19 07/16/19 History 10 MG Insulin Detemir [Levemir] 15 unit SQ 1700 07/16/19 07/16/19 07/16/19 History 15 units - History of Present Illness-Fever Nature of Presenting Problem: Patient is a 58 yowm who complains of fever. States he has had intermittent low-grade fevers since having his colostomy placed in June, but yesterday spiked a high fever and he came in. He states he was admitted and left AMA. His oncologist called him and told him to come back due to a positive blood culture result. Hx of rectal cancer, on chemotherapy. He complains of generalized weakness and fatigue also. Denies any other complaints. Review of Systems - Adult - REVIEW OF SYSTEMS - ADULT Constitutional: reports: see HPI, fever Eyes: reports: no symptoms reported Ears, Nose, Mouth & Throat: reports: no symptoms reported Cardiovascular: reports: no symptoms reported Respiratory: reports: no symptoms reported Gastrointestinal: reports: no symptoms reported Genitourinary: reports: no symptoms reported Musculoskeletal: reports: see HPI (general weakness) Integumentary: reports: no symptoms reported Neurological: reports: no symptoms reported Psychiatric: reports: no symptoms reported Endocrine: reports: no symptoms reported Hematologic/Lymphatic: reports: no symptoms reported Allergic/Immunologic: reports: no symptoms reported All Other Systems: Reviewed and Negative Past History - Adult - PAST MEDICAL HISTORY-ADULT Review of Records: reports: Old Records Reviewed, Nursing Assessment Review, Medications Reviewed, Social history reviewed & non-contributory. Major Childhood Illnesses: reports: denies history Cardiovascular: reports: denies history Respiratory: reports: denies history Gastrointestinal: reports: cancer (rectal CA with mets to liver and lung) Obstetrical/Gynecological: reports: denies history Genitourinary: reports: denies history Musculoskeletal: reports: denies history Neurological: reports: denies history Endocrine/Immune: reports: denies history Other Conditions: reports: denies history - PRIOR SURGERIES/PROCEDURES Surgical/Procedure History: reports: other (colostomy) - IMMUNIZATION STATUS Childhood Immunizations: See Nurse Assessment Flu Vaccine: See Nurse Assessment - FAMILY HISTORY Family History: reviewed, not pertinent - SOCIAL HISTORY Smoking: non-smoker Physical Exam-General - PHYSICAL EXAM-ADULT Initial Vital Signs Reviewed: Yes - CONSTITUTIONAL General Appearance: alert, no apparent distress. negative: lethargic, slow to respond - EYES Eyes: PERRL/EOMI, pink conjunctivae - HEAD, EARS, NOSE, MOUTH & THROAT HENMT: normocephalic/atraumatic, moist mucous membranes - NECK Neck: full range of motion, supple, normal inspection - RESPIRATORY Respiratory: chest non-tender, lungs clear, normal breath sounds, no pleuratic chest pain, no respiratory distress, no accessory muscle use - CARDIOVASCULAR Cardiovascular: normal peripheral pulses, regular rate, rhythm, no gallop, no murmur - GASTROINTESTINAL (ABDOMEN) Abdominal Exam: normal bowel sounds, non tender, soft, other (colostomy intact). negative: distended, guarding, rigid, rebound, tenderness - MUSCULOSKELETAL Back Exam: normal inspection Extremity: normal range of motion, non-tender, normal gait, normal inspection - SKIN Integumentary: normal color, warm/dry, other (appears pale). negative: cyanosis, diaphoresis, jaundice, mottled, pallor - NEUROLOGIC Neurologic: grossly normal, no motor/sensory deficits - PSYCHIATRIC Psych/Mental Status: normal mood/affect, normal thought content, normal thought process, oriented x 3 Progress - PLAN OF CARE/RESULTS Progress/Plan/Lab Results: Vital Signs - 8 hr 07/16/19 15:33 Temperature 98.1 F Pulse Rate 84 Respiratory Rate 18 Blood Pressure 97/64 O2 Sat by Pulse Oximetry 99 Orders Category Date Time Status Cardiac Monitoring DIRECTED Care 07/16/19 15:38 Active IV Insertion ORDERED Care 07/16/19 15:38 Active Notify MD of + Sepsis Screen NOW Care 07/16/19 15:38 Active Notify Physician As Ordered Care 07/16/19 15:38 Active OK to use Port-A-Cath ORDERED Care 07/16/19 15:38 Active CBC WITH DIFF [HEME] Stat Lab 07/16/19 16:30 Ordered CK PROFILE [SP CHEM] Stat Lab 07/16/19 16:30 Ordered COMPREHENSIVE METABOLIC PANEL [CHEM] Stat Lab 07/16/19 16:30 Ordered LACTATE, PLASMA [CHEM] Lab 07/16/19 18:45 Uncollected LACTATE, PLASMA [CHEM] Lab 07/16/19 21:45 Uncollected LACTATE, PLASMA [CHEM] Q3H Lab 07/16/19 16:30 Ordered MAGNESIUM [CHEM] Stat Lab 07/16/19 16:30 Ordered PROTIME WITH INR [COAG] Stat Lab 07/16/19 16:30 Ordered PTT [COAG] Stat Lab 07/16/19 16:30 Ordered TROPONIN T Stat Lab 07/16/19 16:30 Ordered URINALYSIS W/POSS RFLX CULT [URINALYSIS] Stat Lab 07/16/19 16:32 Ordered 0.9% Sodium Chloride Inj [Ns] 1,000 ml Med 07/16/19 17:10 Active IV 999 mls/hr Levofloxacin 750 mg/D5w [Levaquin 750 mg/D5w] Med 07/16/19 17:15 Active 750 mg in 150 ml IV NOW Lidocaine/Prilocaine Cream [Emla Cream] Med 07/16/19 17:13 Discontinued 1 gm TOP NOW ONE Piperacillin/Tazobactam [Zosyn] 3.375 gm Med 07/16/19 17:07 Discontinued 0.9% Sodium Chloride Inj [Ns] 50 ml IV NOW Oxygen Device Stat Oth 07/16/19 15:38 Active - REASSESSMENT Reassessment #1 Time Reassessed: 17:14 Status: other (Admitting HPS paged.) Reassessment #2 Time Reassessed: 17:54 Status: other (Pt in agreement with admission plan- urine obtained and has not been sent yet, broad-spectrum abx ordered. Reviewed Dr. Meza's note from last night. When questioned, pt does report he has had dusuria since colostomy surgery. Pt admitted to Dr. Sánchez in stable condition.) - CONSULTS/PCP/HOSPITALIST Notification #1 *Consult/PCP/Hospitalist*: Dr. Sánchez Time Discussed: 17:45 Reason/Comments: admission- fever, rectal ca on chemo, weakness Consult Disposition: Admit Departure - Departure Date of Disposition Decision: 07/16/19 Time of Disposition Decision: 17:18 DIAGNOSIS: Weakness Fever Qualifiers: Fever type: unspecified Qualified Code(s): R50.9 - Fever, unspecified Upper respiratory infection Qualifiers: URI type: unspecified URI Qualified Code(s): J06.9 - Acute upper respiratory infection, unspecified Disposition: ADMITTED INPATIENT 09 Certified Medical Emergency: Emergent Condition: Stable Referrals and Follow-Ups: Henry Isaacs [Primary Care Provider] - - Critical Care Note This patient required my direct & personal management of CC.: No Attestation - Physician/ PARISA Attestation Patient care was provided by Advanced Practice Provider:: Yes Advanced Practice Provider:: Nat Martel Advanced Practice Provider documentation review:: The Mid-level provider documentation, treatment plan and medical decision making was reviewed by the physician who agrees with all treatment and medical decision making by the MLP. The physician spent face to face time with patient:: No Advanced Practice Provider documentation review:: Supervising physician onsite and consulted in the evaluation and care of this patient. The physician did not have a face to face encounter with the patient.
[2019-07-16] MEDS ORDERED: LEVAQUIN 750 MG/D5W 750 MG/150 ML IVPB IV ONE (17:15)
[2019-07-16 17:58] LABS: URINE SOURCE CLEAN CATCH
[2019-07-16 18:04] LABS: BILIRUBIN URINE NEGATIVE (NEGATIVE); BLOOD URINE SMALL (NEGATIVE); COLOR ORANGE; GLUCOSE URINE TRACE mg/dL (NEGATIVE); KETONE URINE NEGATIVE (NEGATIVE); LEUKOCYTES URINE NEGATIVE (NEGATIVE); NITRITE URINE NEGATIVE (NEGATIVE); PROTEIN URINE 100 mg/dL (NEGATIVE); SP GRAVITY URINE 1.038; TURBIDITY URINE CLEAR (CLEAR); UROBILINOGEN URINE NORMAL (NORMAL)
[2019-07-16 18:07] LABS: UR EPITHELIAL CELLS <10 /HPF (<10); URINE BACTERIA NEGATIVE /HPF; URINE RBC <10 /HPF (<10); URINE WBC <10 /HPF (<10)
[2019-07-16 18:30] LABS: URINE CRYSTALS NONE SEEN
[2019-07-16 19:18] LABS: HEMATOCRIT 24.7 % (42.0-52.0); HEMOGLOBIN 7.5 g/dL (14.0-18.0); IMM GRAN# 0.02 X1000 (0.0-0.04); IMM GRAN% 0.5 % (0.0-0.5); LYMPH# 0.69 X1000 (1.2-3.4); LYMPH% 17.3 % (20.5-51.1); MCH 22.8 PG (27-31); MCHC 30.4 g/dL (33-37); MCV 75.1 FL (81-99); MONO# 0.06 X1000 (0.11-0.59); MONO% 1.5 % (1.7-9.3); MPV 9.5 FL (7.4-10.4); NEUT# 3.23 X1000 (1.4-6.5); NEUT% 80.7 % (42.2-75.2); PLT 181 X1000 (130-400); RBC 3.29 XMIL (4.7-6.1); RDW 17.6 % (11.5-14.5)
[2019-07-16 19:25] LABS: INR 1.13; PROTIME 14.7 Seconds (11.0-16.0)
[2019-07-16 19:42] LABS: AGAP 9; ALB/GLOB RATIO 0.9; ALBUMIN 2.7 g/dL (3.5-5.0); ALKALINE PHOSPHATASE 142 U/L (32-122); BUN 13 mg/dL (8-22); CALCIUM 7.6 mg/dL (8.8-10.2); CHLORIDE 94 mmol/L (98-107); CK PROFILE 44 U/L (24-204); COSMO 264; CREATININE 0.4 mg/dL (0.7-1.2); ESTIMATED GFR > 60; GLUCOSE 184 mg/dL (70-104); GOT 18 U/L (10-34); GPT 14 U/L (10-44); MAGNESIUM 1.9 mg/dL (1.5-2.7); POTASSIUM 3.8 mmol/L (3.5-5.1); SODIUM 129 mmol/L (136-145); TCO2 26 mmol/L (25-35); TOTAL BILIRUBIN 0.49 mg/dL (0.20-1.00); TOTAL PROTEIN 5.6 g/dL (6.3-8.3)
[2019-07-16] MEDS: HUMALOG SUBQ SCH (21:00)
[2019-07-16] MEDS ORDERED: PERCOCET-5 PO ONE (21:06)
--- NOTE | 2019-07-16 21:19 | Diag Imaging Result Doc PS360 ---
EXAM: CT ABDOMEN/PELVIS W/WO CONTRAS INDICATION: Evaluate for intra-abdominal abscess/fistula TECHNIQUE: This exam was performed using automated exposure control, adjustment of mA or kV according to patient size, and/or use of iterative reconstruction technique. COMPARISON: 06/10/2019 FINDINGS: There is a stable right middle lobe lung nodule and stable scarring with traction bronchiectasis at the medial right lung base. There is a small cluster of hepatic lesions in the right hepatic lobe that are stable. No new hepatic lesions are identified. The spleen is somewhat prominent but stable. The gallbladder, pancreas, and adrenal glands are unremarkable. The kidneys are unremarkable. The urinary bladder is largely nondistended. The wall is somewhat thickened similar to the previous study. However, this is largely due to underdistention. Masslike thickening of the rectal wall that is highly suspicious for neoplasm is again identified. It may be slightly larger than last month study. However, this could be due to positioning. It measures up to 8.7 x 7.1 cm axially. There are a few shotty adjacent lymph nodes that are stable. There has been an interval ileostomy. The GI tract is essentially stable, otherwise. There is no evidence of bowel obstruction. No loculated fluid collection is identified to indicate abscess. There is no CT evidence of fistula. There is a small stable umbilical hernia containing only fat. There is nothing to suggest bony metastatic disease to the abdomen or pelvis. IMPRESSION: 1.Interval ileostomy with no evidence of obstruction. 2.Large rectal mass that may be slightly larger previous study. 3.Stable liver lesions. 4.No well-defined abscess is appreciated. 5.Other incidental/nonacute findings detailed above. Electronically signed by Mono Lott 07/16/2019 9:16 PM
--- NOTE | 2019-07-16 23:29 | HISTORY AND PHYSICAL ---
CHIEF COMPLAINT: Recurrent fever. HISTORY OF PRESENT ILLNESS: Mr. 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 Since then, he was started on chemotherapy. He comes in with chief complaint of recurrent fever. Apparently, patient has been running low-grade fever which increased to 103 degrees on 07/15/2019. For which, he came to emergency room. At that time, the preliminary workup including CT chest was negative. Before he could be worked up, he decided to leave against medical advice since there was no bed that he was transferred from the emergency room to. However, when he went back, his oncologist called him because his blood cultures were growing gram-negative rods. He had another fever episode of 103 degrees today morning, so the emergency room called me and is requesting admission. SUBJECTIVE: Patient is complaining of fever and chills. He is complaining of occasional cough. Denies chest pain or shortness of breath. Denies nausea, vomiting, abdominal pain. He has not noticed any unusual out to ileostomy. He states that he has noticed increasing pus coming out through his rectum, though, which has been an ongoing issue. The patient's is at bedside. REVIEW OF SYSTEMS: Positive for pus coming out of rectum, some headache, and tiredness. ALLERGIES: Ferumoxytol. HOME MEDICATIONS INCLUDE: Carvedilol 25 mg daily, terazosin 10 mg daily, omeprazole 40 mg daily, insulin detemir 15 units subcutaneous daily. PAST MEDICAL HISTORY: 1. Metastatic rectal adenocarcinoma. 2. Essential hypertension. 3. Insulin-dependent diabetes mellitus. 4. Benign prostatic hypertrophy. PAST SURGICAL HISTORY: 1. Arthroscopic knee surgery. 2. Diverting loop ileostomy. SOCIAL HISTORY: Uses 2 cans of smokeless tobacco per week. No alcohol use. No illicit drug use. and lives with . FAMILY HISTORY: Not significant. LABORATORY DATA: His CBC and CMP are pending. Previously, his lab analysis yesterday, had hyponatremia, hypochloremia, low creatinine, elevated BUN, BUN and creatinine ratio was increased. He did have hyperglycemia, uncontrolled diabetes mellitus. MICROBIOLOGY: Two of the blood cultures are growing gram-negative rods. IMAGING: Yesterday, chest CT had detected stable right middle lobe mass, stable scarring, infection, bronchiectasis of medial right lung. There was no identifiable consolidation. Today, urinalysis has not detected any pyuria, though it has small blood. VITALS: Currently, afebrile with temperature of 98.1 degrees, pulse 84, respiratory rate 18, blood pressure 114/70. He is saturating 96% on room air. PHYSICAL EXAMINATION: GENERAL: He appears febrile and very tired. HEENT: He has sunken eyeballs. Oral cavity is dry. LUNGS: Air entry bilaterally equal. No wheeze, rhonchi, crackles. CARDIOVASCULAR: S1, S2 normal. No murmur or gallop. ABDOMEN: Soft, obese, nontender. He has a right-sided chest port, right-sided lower quadrant ileostomy draining yellowish output. Bilateral lower extremity edema. RECTAL EXAMINATION: I could see pus coming out of it. It has foul-smelling discharge. He also had an external hemorrhoid. I could not see any visible abscess. He does appear to have a stage I sacral ulcer. Microbiology, as mentioned above. ASSESSMENT AND PLAN: 1. Gram-negative sepsis likely from intra-abdominal source. My suspicion is an intra-abdominal abscess versus fistula. He does have pus coming out of his rectum. I will order CT scan of the abdomen and pelvis with IV contrast. I will keep him on intravenous fluids and follow up repeat blood cultures. 2. Metastatic rectal carcinoma with liver and lung metastasis. If needed in the future, I will consult Oncology. 3. Chronic gastroesophageal reflux disease. Continue home omeprazole. 4. Benign prostatic hypertrophy. Continue terazosin. 5. Insulin-dependent diabetes mellitus. Continue home detemir and sliding scale insulin, and frequent blood sugar checks. 6. Deep vein thrombosis prophylaxis. Enoxaparin. DISPOSITION: I will continue to monitor patient in telemetry unit. Plan of care discussed with the patient and his at bedside. Their questions have been satisfactorily answered. cc: Wojciech Sánchez MD
[2019-07-17] MEDS: ZOSYN 3.375 GM in NS 50 ML IV SCH ×3 (00:46→20:12)
[2019-07-17] MEDS: NS 1,000 ML IV SCH ×2 (00:47→18:02)
[2019-07-17] MEDS: PERCOCET-5 PO PRN ×3 (04:03→18:12)
[2019-07-17] MEDS: HUMALOG SUBQ SCH ×4 (06:01→21:58)
[2019-07-17 08:06] LABS: EOS# 0.01 X1000 (0.0-0.7); EOS% 0.2 % (0.0-10.0); HEMATOCRIT 24.8 % (42.0-52.0); HEMOGLOBIN 7.4 g/dL (14.0-18.0); IMM GRAN# 0.03 X1000 (0.0-0.04); IMM GRAN% 0.6 % (0.0-0.5); LYMPH# 0.71 X1000 (1.2-3.4); LYMPH% 15.1 % (20.5-51.1); MCH 22.7 PG (27-31); MCHC 29.8 g/dL (33-37); MCV 76.1 FL (81-99); MONO# 0.04 X1000 (0.11-0.59); MONO% 0.8 % (1.7-9.3); MPV 9.7 FL (7.4-10.4); NEUT# 3.92 X1000 (1.4-6.5); NEUT% 83.3 % (42.2-75.2); PLT 174 X1000 (130-400); RBC 3.26 XMIL (4.7-6.1); RDW 17.7 % (11.5-14.5); WBC 4.71 X1000 (4.8-10.8)
[2019-07-17 08:09] LABS: AGAP 10; BUN 9 mg/dL (8-22); CALCIUM 7.7 mg/dL (8.8-10.2); CHLORIDE 96 mmol/L (98-107); COSMO 266; CREATININE 0.5 mg/dL (0.7-1.2); ESTIMATED GFR > 60; GLUCOSE 208 mg/dL (70-104); POTASSIUM 3.3 mmol/L (3.5-5.1); SODIUM 130 mmol/L (136-145); TCO2 24 mmol/L (25-35)
[2019-07-17] MEDS ORDERED: MAGNESIUM SULFATE 2 GM/S.W.I. 2 GM/50 ML IVPB IV ONE (08:40)
[2019-07-17] MEDS ORDERED: LOVENOX SUBQ SCH (09:00)
--- NOTE | 2019-07-17 09:18 | PROGRESS NOTE ---
DATE: 07/17/2019 INTERVAL HISTORY: No acute events overnight. CT scan abdomen and pelvis had detected large rectal mass, but there was no evidence of any identifiable intra-abdominal source of infection. SUBJECTIVE: He is feeling unhappy about being in the hospital however healthwise he is feeling better. We discussed about getting urine cultures to see if the bacteria grows. VITALS: Temperature 97.9 degrees, pulse 70, respiratory rate 18, blood pressure 114/69. He is saturating 99% on room air. PHYSICAL EXAMINATION: He does not appear in any acute distress.HEENT: Oral cavity is moist. Lungs: Air entry bilaterally equal. No wheeze, rhonchi, or crackles, except mild crackles bilateral bases. Cardiovascular: S1, S2 normal. No murmur, rub, or gallop. Abdomen: Soft, obese, nontender. He has a right-sided chest port. Right-sided lower quadrant ileostomy draining yellowish output. Extremities: Bilateral lower extremity edema. LABS: Suggestive of microcytic anemia which is not very far from his baseline. Normal platelet count. Hyponatremia, hypochloremia, hypokalemia. Normal kidney function and hypocalcemia. Abscess culture is pending. Blood cultures final results are pending. ASSESSMENT AND PLAN: 1. Gram-negative sepsis from unclear source. Follow up urine culture results, projectile pus culture. In future I may consider consulting Infectious Disease. Continue intravenous Zosyn until final culture results comes back. 2. Metastatic rectal carcinoma with liver and lung metastasis. He has been on chemotherapy. I will consult Oncology accordingly. 3. Chronic GERD. Continue home omeprazole. 4. BPH. Continue terazosin. 5. Insulin-dependent diabetes mellitus. Continue home treatment and sliding scale insulin. 6. Enoxaparin for DVT prophylaxis. 7. Hyponatremia, hypokalemia, hypochloremia due to poor oral intake. Continue intravenous normal saline and replete potassium. 8. Disposition. Continue to monitor patient inside the hospital for ongoing sepsis. Plan of care discussed with him and his . All their questions have been answered. cc: Wojciech Sánchez MD
[2019-07-17] MEDS: HYTRIN PO SCH (10:23)
[2019-07-17] MEDS: TUMS PO SCH ×3 (10:23→17:57)
[2019-07-17] MEDS: PRILOSEC PO SCH (10:23)
[2019-07-17] MEDS: LOVENOX SUBQ SCH (10:28)
[2019-07-17] MEDS: POTASSIUM CHLORIDE 20 MEQ/SWI 20 MEQ/100 ML IVPB IV SCH ×2 (10:32→14:57)
[2019-07-17] MEDS: KLOR-CON PO SCH ×2 (14:13→18:29)
[2019-07-17] MEDS: LEVEMIR SUBQ SCH (18:07)
[2019-07-18] MEDS: ZOSYN 3.375 GM in NS 50 ML IV SCH ×3 (01:07→08:53)
[2019-07-18] MEDS: NS 1,000 ML IV SCH ×3 (01:14→22:23)
[2019-07-18] MEDS: PERCOCET-5 PO PRN ×3 (02:26→18:42)
[2019-07-18] MEDS: HUMALOG SUBQ SCH ×4 (07:30→22:23)
[2019-07-18 08:07] LABS: AGAP 10; BUN 7 mg/dL (8-22); CALCIUM 7.5 mg/dL (8.8-10.2); CHLORIDE 96 mmol/L (98-107); COSMO 262; CREATININE 0.5 mg/dL (0.7-1.2); ESTIMATED GFR > 60; GLUCOSE 189 mg/dL (70-104); POTASSIUM 4.3 mmol/L (3.5-5.1); SODIUM 129 mmol/L (136-145); TCO2 23 mmol/L (25-35)
[2019-07-18] MEDS: TUMS PO SCH ×3 (08:54→17:18)
[2019-07-18] MEDS: HYTRIN PO SCH (08:55)
[2019-07-18] MEDS: PRILOSEC PO SCH (08:55)
[2019-07-18] MEDS ORDERED: INSULIN PEN NEEDLES ONE ×2 (09:57→16:20)
[2019-07-18 10:47] LABS: HEMOGLOBIN 8.3 g/dL (14.0-18.0); MCH 22.7 PG (27-31); MCHC 29.6 g/dL (33-37); MCV 76.5 FL (81-99); RBC 3.66 XMIL (4.7-6.1); RDW 17.8 % (11.5-14.5); WBC 7.17 X1000 (4.8-10.8)
[2019-07-18 10:48] LABS: BASO# 0.01 X1000 (0.0-0.2); BASO% 0.1 % (0.0-0.8); EOS# 0.02 X1000 (0.0-0.7); EOS% 0.3 % (0.0-10.0); IMM GRAN# 0.04 X1000 (0.0-0.04); IMM GRAN% 0.6 % (0.0-0.5); LYMPH# 1.11 X1000 (1.2-3.4); LYMPH% 15.5 % (20.5-51.1); MONO# 0.08 X1000 (0.11-0.59); MONO% 1.1 % (1.7-9.3); MPV 10.4 FL (7.4-10.4); NEUT# 5.91 X1000 (1.4-6.5); NEUT% 82.4 % (42.2-75.2); PLT 220 X1000 (130-400)
--- NOTE | 2019-07-18 11:01 | PROGRESS NOTE ---
DATE: 07/18/2019 INTERVAL HISTORY: His first set of blood culture is growing Escherichia coli, which is sensitive to cefazolin. Second set of blood culture is collected today. SUBJECTIVE: Mr. Vasquez denies any more fever. He is feeling significantly better. He was able to walk in the hallway. Temperature is 97.8 degrees, pulse 80, respiratory rate 18, blood pressure 120/70. He is saturating 100% on room air. His is at bedside. I discussed with them about E. coli from the mucousy, pus-like material coming out of his rectum and also discussed with them about E. coli in blood. I discussed with them that I will consult surgical team for further recommendation. He has not been afebrile. PHYSICAL EXAMINATION: General: He is feeling much better. Oral cavity is moist. Lungs: Air entry bilaterally equal. No wheeze, rhonchi, crackles. Cardiovascular: S1, S2 normal. No murmur, rub, or gallop. He has a port for chemotherapy in his right chest. Abdomen: Obese, soft, nontender. Right lower quadrant ileostomy. Bilateral lower extremities do not have any edema. LABS: Suggestive of no CBC today. BMP has persistent hyponatremia and hypochloremia. His kidney function is normal. MICROBIOLOGY: Blood cultures growing Escherichia coli, which is sensitive to cefazolin. Noticeably, it is also sensitive to levofloxacin. New set of blood cultures has been ordered. ASSESSMENT AND PLAN: 1. Escherichia coli sepsis from unclear source, as well as Escherichia coli in the fluid coming out of his rectum. Change antibiotics to intravenous cefazolin. Surgical team has been consulted. Official recommendations pending. It is possible that his tumor might be invading blood vessels and that is where he is getting bacteria from. 2. Metastatic rectal carcinoma with liver and lung metastasis. He is on chemotherapy with oncology. 3. Chronic gastroesophageal reflux disease. Continue omeprazole; continue terazosin for benign prostatic hypertrophy; continue home detemir and sliding scale insulin for insulin-dependent diabetes mellitus; enoxaparin for deep venous thrombosis prophylaxis. 4. Hyponatremia, hypokalemia, hypochloremia due to poor oral intake, are improving. I will continue intravenous fluids. His potassium is normal. 5. Disposition. I will continue to monitor patient inside the hospital. Plan of care was discussed with the patient and his . All their questions have been answered. cc: Wojciech Sánchez MD
--- NOTE | 2019-07-18 11:09 | GENERAL SURGERY CONSULTATION ---
DATE: 07/18/2019 HISTORY OF PRESENT ILLNESS: Mr. Vasquez is an unfortunate, 58-year-old gentleman with stage IV rectal cancer. He underwent a diverting loop ileostomy about a month ago by Dr. Ragsdale. Since that time, he was started on chemotherapy for his stage IV disease. He had his last round of chemotherapy last week. He has developed fevers, but actually he has been having fevers even dating back before the surgery a month ago. The blood cultures from 07/15/2019 are positive for Escherichia coli. Urine cultures from yesterday are pending. On antibiotic therapy, his fevers have defervesced. He has had a port placed, and that port was placed at the same time of his surgery on 06/23/2019. A CT scan today does not show any evidence of abscess. PAST MEDICAL HISTORY: Rather unremarkable. HOME MEDICATIONS: Not listed. I think he takes Coreg 12.5 mg daily, and tamsulosin 0.4 mg daily. ALLERGIES: He has no known drug allergies. PAST SURGICAL HISTORY: Includes the loop ileostomy, the port, and of arthroscopic knee surgery in the past. SOCIAL HISTORY: He is . Denies alcohol use or illicit drug use. He takes two cans of smokeless tobacco per week. FAMILY HISTORY: Unknown. REVIEW OF SYSTEMS: Negative in all subsystems, except as noted above in the History of Present Illness. PHYSICAL EXAMINATION: Vital Signs: He is afebrile, heart rate 80, blood pressure 120/72. Neck: No cervical adenopathy. Right subclavian port is noted. Lungs: Bilateral breath sounds. Heart: Regular rate and rhythm. Abdomen: Right lower quadrant shows a diverting loop ileostomy. Abdomen is soft and nontender. Rectal: A small ulceration in his pilonidal area, but no pointing or fluctuance or erythema in the perianal area. Extremities: Trace peripheral edema. Neurologic: He is awake, alert, and oriented. ASSESSMENT: Fever of uncertain etiology. There is no evidence of perirectal abscess. The fevers have been present ever since a month ago, even before his surgery, and could be due to the rectal tumor. With recent positive Escherichia coli blood cultures from 3 days ago, it may become necessary to change his port or remove his port. No operative intervention is indicated for perirectal abscess because none is present. The mucus coming out of his anus and rectum is probably just mucus from the tumor itself. Tumor necrosis from chemotherapy could also contribute to this fever. We will see what these most recent blood cultures show. I will let Dr. Ragsdale know of his presence. cc: Derian Syed MD
[2019-07-18] MEDS: LOVENOX SUBQ SCH (11:25)
[2019-07-18] MEDS: KEFZOL 2 GM/D5W 2 GM/50 ML IVPB IV SCH ×2 (11:29→17:47)
[2019-07-18] MEDS: LEVEMIR SUBQ SCH (17:18)
[2019-07-19] MEDS: KEFZOL 2 GM/D5W 2 GM/50 ML IVPB IV SCH ×3 (02:27→16:55)
[2019-07-19] MEDS: HUMALOG SUBQ SCH ×4 (06:49→20:39)
[2019-07-19 08:16] LABS: AGAP 9; BUN 6 mg/dL (8-22); CALCIUM 7.6 mg/dL (8.8-10.2); CHLORIDE 101 mmol/L (98-107); COSMO 269; CREATININE 0.5 mg/dL (0.7-1.2); ESTIMATED GFR > 60; GLUCOSE 192 mg/dL (70-104); SODIUM 133 mmol/L (136-145); TCO2 23 mmol/L (25-35)
[2019-07-19] MEDS: TUMS PO SCH ×3 (09:14→17:27)
[2019-07-19] MEDS: PRILOSEC PO SCH (09:14)
[2019-07-19] MEDS: HYTRIN PO SCH (09:14)
[2019-07-19] MEDS: LOVENOX SUBQ SCH (10:18)
[2019-07-19] MEDS: NS 1,000 ML IV SCH ×2 (10:18→14:50)
[2019-07-19] MEDS: PERCOCET-5 PO PRN ×2 (10:21→19:22)
[2019-07-19] MEDS: LEVEMIR SUBQ SCH (16:55)
--- NOTE | 2019-07-19 21:15 | PROGRESS NOTE ---
DATE: 07/19/2019 INTERVAL HISTORY: No acute events overnight. The blood cultures collected on 07/18/2019 are turning positive with gram-negative rods. SUBJECTIVE: The patient is not happy that he has to be here awaiting next set of blood cultures. Surgical team yesterday had recommended possibility of tumor invading the vascular structures causing E coli bacteremia and they did not think the patient had any kind of abscess. OBJECTIVE: Vital signs: Temperature 97.9 degrees, pulse 80, respiratory rate 20, blood pressure 118/60, and he is saturating 100% on room air. General: Does not appear in any acute distress. He appears sad that he has to stay inside the hospital. HEENT: Oral cavity is moist. Lungs: Air entry bilaterally equal. No wheeze, rhonchi, crackles. Cardiovascular: S1, S2 normal. No murmur or gallop. He has a right-sided chest port without any palpable or visible pus pocket. Abdomen: Obese, soft, nontender. Right lower quadrant ileostomy with dark yellowish output. Extremities: Bilateral lower extremity does not have any edema. He is alert and oriented x3. LABORATORY DATA: No CBC today. BMP suggestive of improvement in hyponatremia and resolution of hypokalemia. His kidney function is normal. Blood sugars are in acceptable range. Microbiology: Repeat blood cultures are also positive. ASSESSMENT AND PLAN: 1. Escherichia coli sepsis with forced positive blood culture on 07/15/2019. He continues to have positive blood culture. I will continue to treat it with intravenous cefazolin. The mucoid pus-like material coming out of his rectum though is growing Escherichia coli. There was no evidence of perirectal or intra-abdominal abscess. Supposedly, tumor invading surrounding vascular structure is thought to be the likely source of infection. I will appreciate further surgery recommendations on this as well as management of port or its removal considering persistent bacteremia. 2. Metastatic rectal carcinoma with liver and lung metastases. He has been on outpatient chemotherapy. 3. Chronic gastrointestinal reflux disease. Continue omeprazole; continue terazosin for benign prostatic hypertrophy; Detemir and sliding scale insulin for insulin-dependent diabetes mellitus; enoxaparin for DVT prophylaxis. 4. Hyponatremia, hypokalemia, hypochloremia on presentation because of poor oral intake have improved. His fever spike since admission has improved as well. DISPOSITION: I will send another set of blood cultures on 07/20/2019 and will await his final results before deciding further disposition to home. Plan of care discussed with the patient and his at bedside. Their questions have been satisfactorily answered. cc: Wojciech Sánchez MD
[2019-07-20] MEDS: KEFZOL 2 GM/D5W 2 GM/50 ML IVPB IV SCH ×2 (01:42→08:46)
[2019-07-20] MEDS: PERCOCET-5 PO PRN ×4 (01:55→22:53)
[2019-07-20] MEDS: HUMALOG SUBQ SCH ×4 (06:06→20:30)
--- NOTE | 2019-07-20 07:54 | GENERAL SURGERY PROGRESS NOTE ---
DATE: 07/19/2019 SUBJECTIVE: Feels much better. He has not had any fevers in the last 24 hours. Repeat blood cultures are pending. His abdomen is soft. His ostomy is functioning. He is tolerating a diet. Minimal drainage from his anus. I reviewed his labs and his microbiology data. ASSESSMENT AND PLAN: This is a gentleman with metastatic rectal carcinoma. He started chemotherapy last week. He is found to be bacteremic. This is possibly an ongoing issue as he has had fevers for greater than 2 months really, but has not been clinically ill related to this. Unsure whether or not the port is involved or not. If he continues to have positive blood cultures, we may need to consider port removal, but it does seem to be intact and functioning well. Will monitor for now. He is on appropriate antibiotics. cc: Luke Ragsdale MD
[2019-07-20 08:12] LABS: HEMATOCRIT 27.5 % (42.0-52.0); HEMOGLOBIN 8.3 g/dL (14.0-18.0); MCH 23.4 PG (27-31); MCHC 30.2 g/dL (33-37); MCV 77.5 FL (81-99); MPV 10.4 FL (7.4-10.4); RBC 3.55 XMIL (4.7-6.1); RDW 18.2 % (11.5-14.5); WBC 5.68 X1000 (4.8-10.8)
[2019-07-20 08:42] LABS: CHLORIDE 102 mmol/L (98-107); SODIUM 137 mmol/L (136-145); TCO2 22 mmol/L (25-35)
[2019-07-20 08:43] LABS: AGAP 13; BUN 7 mg/dL (8-22); CALCIUM 7.6 mg/dL (8.8-10.2); COSMO 275; CREATININE 0.4 mg/dL (0.7-1.2); ESTIMATED GFR > 60; GLUCOSE 156 mg/dL (70-104)
[2019-07-20] MEDS: PRILOSEC PO SCH (08:46)
[2019-07-20] MEDS: HYTRIN PO SCH (08:46)
[2019-07-20] MEDS: TUMS PO SCH ×3 (08:46→17:20)
[2019-07-20] MEDS: LOVENOX SUBQ SCH ×2 (08:47→11:27)
[2019-07-20] MEDS: LEVAQUIN PO SCH (10:17)
--- NOTE | 2019-07-20 12:43 | INFECTIOUS DISEASE CONSULT REP ---
DATE: 07/20/2019 CONCLUSIONS: The patient has a gram-negative bryn bacteremia. I think most likely it arose from the patient's rectal area where he has a large rectal tumor. E. Coli was isolated from the rectal area. I think it is possible that the same organism is in the blood stream. However, it should be noted that E. Coli is normal lyubov in the rectal area so the gram-negative bryn in the blood may be a different one than E. coli also. I think it would be unlikely that the E. Coli bacteremia originates from the patient's Port-A-Cath, but I still think it is a possibility. RECOMMENDATIONS: I discussed with the patient and his various options. The one that we all agreed with was to treat the patient with an antibiotic for his gram-negative bacteremia. In this case, I would probably use Levaquin assuming that the organism in the blood stream is E. Coli, and is susceptible to Levaquin. I would treat him for a total of 14 days with day one being the first day that the patient's blood cultures are negative. I would leave the Port-A-Cath in. However, if the blood cultures come back again with E. Coli in them, then I think the Port-A-Cath will have to be removed, and the patient will have to be treated again with another 14 day treatment course with an appropriate antibiotic. DISCUSSION: The patient had chemotherapy for his rectal cancer, after the last day of it, he developed a fever and had shaking chills. His blood culture is growing a gram-negative bryn. A culture taken from the anal area is growing E coli. The patient's CBC shows a white count of 5680, hemoglobin 8.3, and platelet count 165,000. Creatinine is 0.4. GFR is greater than 60. CT scan of the abdomen and pelvis shows a large rectal mass. PAST MEDICAL HISTORY/REVIEW OF SYSTEMS: Eyes and Ears: His vision and hearing are good. Neck: No stiffness. Respiratory: No cough or shortness of breath. Cardiac: No chest pain or palpitations. GI: The patient has a rectal carcinoma, and he has a diverting ileostomy for it. The patient is not having any nausea or vomiting. : No dysuria or flank pain. Neurologic: No seizures. No loss of motor or sensory function. PREVIOUS HOSPITALIZATIONS AND OPERATIONS: Patient has had a Port-A-Cath placed on the right side. He had surgery on his thumb and on his knee also. MEDICAL DISEASES: Positive for obesity, diabetes mellitus, and rectal carcinoma. Infectious disease: Positive for pneumonia and UTI. FAMILY HISTORY: Positive for diabetes mellitus, hypertension, myocardial infarction, and cancer. SOCIAL HISTORY[place] . He has a dog as a pet. He does not smoke cigarettes, drink alcoholic beverages, or abuse drugs. 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 ALLERGIES: Patient's chart lists an allergy, ferumoxytol. MEDICATIONS: The patient's medications taken at home include Coreg, insulin, Prilosec, oxycodone and terazosin. PHYSICAL EXAMINATION: Vital Signs: Temperature is 97.8 degrees, pulse 87, respirations 18, blood pressure 125/80. The patient is 6 feet tall, and weighs 250 pounds. General: This is an obese, middle-aged male. He is in no acute distress. Head/eyes/ears/nose/throat: He can hear my spoken words and see near objects. I do not see any white patches in his mouth. Neck: No meningismus. Lungs: Clear to auscultation. Cardiovascular: Heart rate is regular. Abdomen: Soft and nontender. Rectal: I attempted to do a rectal exam on the patient, but it was very painful for him so I stopped without getting in the rectal area. Neurologic: Patient is alert. He ambulates without difficulty. There is no tremor. Integument: No rash. Thank you for the consult. cc: Cosme Marvin MD
[2019-07-20] MEDS: LEVEMIR SUBQ SCH (17:23)
--- NOTE | 2019-07-20 20:29 | PROGRESS NOTE ---
DATE: 07/20/2019 SUBJECTIVE: The patient is resting comfortably in bed. He has no complaints. OBJECTIVE: Vital Signs: Temperature 98 degrees, blood pressure 99/67, heart rate 95, respirations 18, O2 saturation 99% on room air. General: This is a chronically ill-appearing elderly male lying in bed in no acute distress. Heart: S1, S2 normal. Regular rate and rhythm. Lungs: Clear to auscultation bilaterally. Abdomen: Positive bowel sounds. Soft, nontender, nondistended. Extremities: No edema, no cyanosis. Neuro: The patient is alert and oriented x3. LABS: Hemoglobin 8.3, hematocrit 27, platelets 165,000. BUN 7, creatinine 0.4 glucose 157. ASSESSMENT AND PLAN: 1. Bacteremia. The blood cultures are growing gram-negative rods. The patient has Escherichia coli that was isolated from the rectum. The patient is now on oral Levaquin as directed by Dr. Marvin. 2. Metastatic rectal carcinoma with liver and lung metastasis. Aware. The patient is followed by Oncology as outpatient. 3. Diabetes mellitus type 2. Continue on Levemir and Humalog. 4. Deep vein thrombosis prophylaxis. Continue on Lovenox. cc: Fannie Gilmore MD MTDD
--- NOTE | 2019-07-20 21:43 | HEMO/ONC CONSULTATION ---
DATE: 07/20/2019 REASON FOR CONSULTATION: Rectal cancer, patient known. HISTORY OF PRESENT ILLNESS: Mr. Vasquez is a 58-year-old male who is known to us as we are treating him for rectal cancer. He is now status post cycle 1 of FOLFOXIRI, which he completed on 07/15/2019. The patient was found to have bacteremia. He actually prior to presenting to the emergency department had a temperature as high as 104.3 degrees with weakness. He was subsequently admitted for further evaluation and treatment. Again he had positive blood cultures, gram-negative rods, which has turned out to be E coli. He is being treated neoadjuvantly, which means he currently has his tumor, which has yet to be resected. At this time, the patient is doing relatively okay. He is resting comfortably in his hospital bed. PAST MEDICAL HISTORY: 1. Hypertension. 2. BPH. 3. Rectal cancer, newly diagnosed and undergoing neoadjuvant chemotherapy. Status post cycle #1. 4. Diabetes mellitus. SURGICAL HISTORY: Positive only for his lap-assisted diverting loop ileostomy on 06/23/2019 SOCIAL HISTORY: Patient is and lives with his spouse. He has a 25-year pack history of smoking cigarettes. He drinks alcohol socially. He denies any illicit drug use. FAMILY HISTORY: Positive for uterine cancer. REVIEW OF SYSTEMS: Twelve-point review of systems has been completed and is negative except for what is expressed in the HPI. PHYSICAL EXAMINATION: Vital Signs: Temperature 97.9 degrees, heart rate 89, respirations 18, blood pressure 121/68, O2 saturation 100% on room air. General: This is a male lying in his hospital bed. He is in no acute distress at this time. His is at bedside. Head: Normocephalic, atraumatic. Eyes: Pupils equal, round, reactive. Ears, nose, throat, neck, mouth: Oral mucosa appears to be normal. Gross auditory acuity is intact. Cardiovascular: S1, S2 heard. No murmurs, gallops, rubs appreciated. Respiratory: Chest is clear. Gastrointestinal: Abdomen is soft. Positive bowel sounds. Musculoskeletal: No obvious bony abnormalities. Extremities: No edema. Neurologic: Patient is alert and oriented. LABS AND STUDIES: White blood cells today are 5.68, hemoglobin 8.3, platelet count 165,000. ASSESSMENT AND PLAN: 1. Rectal cancer, metastatic with solitary lung and liver metastasis. Status post cycle 1 of chemotherapy in the neoadjuvant setting, which his treatment was completed on 07/15/2019. Treatment will be on hold while he is acutely ill. He will need to come back into the office, and we will discuss when to restart treatment. 2. Gram-negative bacteremia. Management per Dr. Marvin. Of note, they are leaving the Port-A- Cath in for the time being. We will also coordinate with Dr. Marvin once the patient is out in regard to when we can resume chemotherapy. 3. Diabetes mellitus. Management per the primary team. 4. Pain. Seems to be well managed, and he will continue Percocet at this time. We want to thank you for consulting us on Mr. Vasquez. We will continue to follow along and adjust our treatment plan per his hospital course. Dictated by ALANA Duarte for Jyothi Roberts MD cc: Jyothi Roberts MD I have seen and examined the patient and the above note reflects my history, physical exam, assessment and plan. Jyothi Roberts MD [facility]ITALJulia
--- NOTE | 2019-07-21 03:40 | GENERAL SURGERY PROGRESS NOTE ---
DATE: 07/20/2019 SUBJECTIVE: Doing well. No fevers. No tachycardia. Abdomen is soft. Ostomy is functioning. OBJECTIVE: Vital signs: Pulse 97, blood pressure 124/64. General: He is alert. Abdomen: Soft. Ostomy has stool in the bag. LABORATORY DATA: White count 5, hematocrit 27. Creatinine 0.4. His repeat blood cultures have been negative. ASSESSMENT AND PLAN: This is a 58-year-old gentleman undergoing neoadjuvant chemotherapy, status post 1 treatment for rectal carcinoma that is metastatic. He has diverting loop ileostomy. He had bacteremia related to gram-negative bryn Escherichia coli, most likely gastrointestinal in etiology from translocation. Given the negative nature of his repeat blood cultures, doubtful that his port is infected, but we will monitor. He is on appropriate antibiotics. Dr. Roberts is seeing him and plans to hold his chemotherapy for the next couple weeks. We will continue to follow along. cc: Luke Ragsdale MD
[2019-07-21] MEDS: HUMALOG SUBQ SCH (06:36)
[2019-07-21] MEDS: PERCOCET-5 PO PRN (06:39)
[2019-07-21 07:44] LABS: HEMATOCRIT 28.7 % (42.0-52.0); HEMOGLOBIN 8.6 g/dL (14.0-18.0); MCH 23.2 PG (27-31); MCV 77.4 FL (81-99); MPV 10.3 FL (7.4-10.4); RBC 3.71 XMIL (4.7-6.1); RDW 18.7 % (11.5-14.5); WBC 5.1 X1000 (4.8-10.8)
[2019-07-21 08:09] LABS: AGAP 11; BUN 6 mg/dL (8-22); CHLORIDE 102 mmol/L (98-107); COSMO 279; CREATININE 0.4 mg/dL (0.7-1.2); ESTIMATED GFR > 60; GLUCOSE 240 mg/dL (70-104); POTASSIUM 3.9 mmol/L (3.5-5.1); SODIUM 137 mmol/L (136-145); TCO2 24 mmol/L (25-35)
[2019-07-21 08:21] VITALS: BP 157/74
[2019-07-21] MEDS: TUMS PO SCH (08:46)
[2019-07-21] MEDS: PRILOSEC PO SCH (08:46)
[2019-07-21] MEDS: HYTRIN PO SCH (08:46)
[2019-07-21] MEDS: LEVAQUIN PO SCH (08:46)
[2019-07-21] MEDS: LOVENOX SUBQ SCH (08:47)
--- NOTE | 2019-07-31 11:41 | DISCHARGE SUMMARY ---
ADMISSION DATE: 07/16/2019 DISCHARGE DATE: 07/21/2019 FINAL DISCHARGE DIAGNOSES: 1. Bacteremia secondary to Escherichia coli. 2. 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 3. Diabetes mellitus type 2. 4. Morbid obesity. CONSULTATIONS: 1. General Surgery consultation with Dr. Ragsdale. 2. ID consultation with Dr. Cosme Marvin. HOSPITAL COURSE: Mr. Vasquez is a 58-year-old male with a history of metastatic rectal carcinoma who presented to the [facility] with the chief complaint of recurrent fever. Blood cultures were obtained and a CT of the abdomen and pelvis was done. The CT of the abdomen and pelvis revealed a large rectal mass and stable liver lesions but no evidence of obstruction. The patient was admitted to the Hospitalist Service and started on broad-spectrum antibiotics. General Surgery was consulted as well as the oncologist. The patient was also seen by the Infectious Disease Specialist, Dr. Marvin. The blood cultures grew out E. coli and the patient's antibiotics were adjusted accordingly. The patient's recurrent fever stopped after initiation of antibiotic therapy. The patient was cleared for discharge home with oral antibiotic therapy on 07/21/2019. DISCHARGE MEDICATIONS: 1. Levaquin 500 mg orally daily. 2. Percocet 5 mg/325 mg one tab orally every 6 hours p.r.n. pain. 3. Coreg 25 mg orally daily. 4. Terazosin 10 mg orally daily. 5. Prilosec 40 mg p.o. daily. 6. Levemir 15 units subcutaneously daily. DISCHARGE DIET: Low sodium low cholesterol diet. ACTIVITY: As tolerated. FOLLOW UP INSTRUCTIONS: The patient will need to follow up with Dr. Roberts as scheduled by her clinic. The patient will also need to follow up with Dr. Marvin in 2 weeks. The patient will follow up with Dr. Ragsdale as scheduled by his clinic. cc: Fannie Gilmore MD
== END 2019-07-21 14:39 | disposition home or self-care (01) | DRG 872 ==
LOC: ED 14:23 → SUATTDRO 14:24 → 3N 07-17 00:28
PROVIDERS: ATTEND Internal Medicine

== ENCOUNTER 2019-12-30 07:00 | Inpatient (IN) ==
[2019-12-22 14:36] LABS: HEMATOCRIT 35.8 % (42.0-52.0); HEMOGLOBIN 11.5 g/dL (14.0-18.0); MCH 27.6 PG (27-31); MCHC 32.1 g/dL (33-37); MCV 86.1 FL (81-99); MPV 10.5 FL (7.4-10.4); RBC 4.16 XMIL (4.7-6.1); RDW 15.9 % (11.5-14.5); WBC 3.19 X1000 (4.8-10.8)
[2019-12-22 15:22] LABS: AGAP 12; BUN 10 mg/dL (8-22); CALCIUM 8.9 mg/dL (8.8-10.2); CHLORIDE 102 mmol/L (98-107); COSMO 284; CREATININE 0.7 mg/dL (0.7-1.2); ESTIMATED GFR > 60; GLUCOSE 304 mg/dL (70-104); POTASSIUM 4.1 mmol/L (3.5-5.1); SODIUM 137 mmol/L (136-145); TCO2 23 mmol/L (25-35)
[2019-12-30] MEDS ORDERED: DIPRIVAN 1% ONE ×3 (07:18→15:34)
[2019-12-30] MEDS ORDERED: XYLOCAINE-MPF 2% ONE (07:18)
[2019-12-30] MEDS ORDERED: QUELICIN (DOSE) ONE (07:19)
[2019-12-30] MEDS ORDERED: ZEMURON ONE ×3 (07:19→12:56)
[2019-12-30] MEDS ORDERED: LR 1,000 ML ONE ×2 (07:29→07:55)
[2019-12-30] MEDS ORDERED: ENTEREG ONE (07:29)
[2019-12-30] MEDS ORDERED: INVANZ 1 GM/NS 1 GM/50 ML IVPB ONE (07:29)
[2019-12-30] MEDS ORDERED: SENSORCAINE 0.5%-EPI 1:200,000 ONE (07:55)
[2019-12-30] MEDS ORDERED: MARCAINE 0.25% ONE (08:19)
[2019-12-30] MEDS ORDERED: EXPAREL 1.3% ONE (08:20)
[2019-12-30] MEDS ORDERED: VERSED ONE (09:33)
[2019-12-30] MEDS ORDERED: ZOFRAN ONE (10:38)
[2019-12-30] MEDS ORDERED: DECADRON ONE (10:38)
[2019-12-30] MEDS ORDERED: OFIRMEV 1000 MG/ISOTONIC SOLN 1,000 MG/100 ML BOTTLE ONE (10:38)
[2019-12-30] MEDS ORDERED: FENTANYL ONE (11:14)
[2019-12-30 11:18] LABS: URINE SOURCE CATH
[2019-12-30 11:23] LABS: BILIRUBIN URINE NEGATIVE (NEGATIVE); BLOOD URINE NEGATIVE (NEGATIVE); COLOR YELLOW; GLUCOSE URINE TRACE mg/dL (NEGATIVE); KETONE URINE NEGATIVE (NEGATIVE); LEUKOCYTES URINE NEGATIVE (NEGATIVE); NITRITE URINE NEGATIVE (NEGATIVE); PROTEIN URINE TRACE mg/dL (NEGATIVE); SP GRAVITY URINE 1.026; TURBIDITY URINE CLEAR (CLEAR); UROBILINOGEN URINE NORMAL (NORMAL)
[2019-12-30 11:24] LABS: UR EPITHELIAL CELLS <10 /HPF (<10); URINE BACTERIA NEGATIVE /HPF; URINE RBC <10 /HPF (<10); URINE WBC <10 /HPF (<10)
[2019-12-30] MEDS ORDERED: DILAUDID ONE (14:50)
[2019-12-30] MEDS ORDERED: BRIDION ONE (15:41)
[2019-12-30] MEDS: DILAUDID ONE ×2 (16:27→16:30)
[2019-12-30] MEDS ORDERED: HYDROGEN PEROXIDE SOLUTION ONE (16:38)
[2019-12-30] MEDS: LR 1,000 ML ONE (16:40)
[2019-12-30 17:01] LABS: I-STAT BE 1 mmoll (-2-3); I-STAT GLUCOSE 180 mg/dL (70-105); I-STAT HEMOGLOBIN 10.2 g/dL (11.5-17.5); I-STAT SODIUM 135 mmoll (138-146); I-STAT TCO2 27 mmoll (23-27); I-STAT pH 7.429 (7.350-7.450)
[2019-12-30] MEDS ORDERED: ZOFRAN IV PRN (17:06)
[2019-12-30] MEDS: LR 1,000 ML IV SCH (17:30)
[2019-12-30 18:01] LABS: EOS# 0.02 X1000 (0.0-0.7); EOS% 0.2 % (0.0-10.0); HEMATOCRIT 31.8 % (42.0-52.0); HEMOGLOBIN 9.9 g/dL (14.0-18.0); LYMPH# 0.69 X1000 (1.2-3.4); LYMPH% 7.6 % (20.5-51.1); MCH 27.2 PG (27-31); MCHC 31.1 g/dL (33-37); MCV 87.4 FL (81-99); MONO# 0.44 X1000 (0.11-0.59); MONO% 4.8 % (1.7-9.3); MPV 9.7 FL (7.4-10.4); NEUT# 7.97 X1000 (1.4-6.5); NEUT% 87.4 % (42.2-75.2); PLT 142 X1000 (130-400); RBC 3.64 XMIL (4.7-6.1); RDW 15.7 % (11.5-14.5); WBC 9.12 X1000 (4.8-10.8)
[2019-12-30] MEDS: OFIRMEV 1000 MG/ISOTONIC SOLN 1,000 MG/100 ML BOTTLE IV SCH ×2 (18:24→22:56)
[2019-12-30 18:31] LABS: AGAP 12; BUN 14 mg/dL (8-22); CALCIUM 8.6 mg/dL (8.8-10.2); CHLORIDE 101 mmol/L (98-107); COSMO 279; CREATININE 0.6 mg/dL (0.7-1.2); ESTIMATED GFR > 60; GLUCOSE 242 mg/dL (70-104); POTASSIUM 4.8 mmol/L (3.5-5.1); SODIUM 135 mmol/L (136-145); TCO2 22 mmol/L (25-35)
--- NOTE | 2019-12-30 20:28 | OPERATIVE NOTE ---
PROCEDURE DATE: 12/30/2019 PRE-OP DIAGNOSIS: Low rectal carcinoma, metastatic. POSTOP DIAGNOSIS: Low rectal carcinoma, metastatic. PROCEDURE PERFORMED: 1. Robot assisted abdominoperineal resection. 2. Creation of mucous fistula. ANESTHESIA: General with TAP. EXERCISE EQUIPMENT REPAIR TECHNICIAN: Dr. Mares was present for the entirety of the case. He facilitated with exposure, identification of anatomy distorted by malignancy and obesity and perivisceral adipose tissue. FINDINGS: There was a very large colon. There was a firm mass noted below the peritoneal reflection just a couple of centimeters above the pelvic floor. There is no evidence of gross metastatic disease or adenopathy. ESTIMATED BLOOD LOSS: Was 1000 mL. OPERATIVE NOTE: Risks benefits and alternatives were discussed patient. He consented to the procedure. He was seen preoperatively. Surgical site was confirmed. He was taken to the operating room and placed in lithotomy position after a Vasquez catheter was placed and anesthesia was induced. A TAP block was performed by Anesthesia. His abdomen was prepped after hair was removed with clippers with chlorhexidine. His perineum was prepped with Betadine. After a time- out, we gained access to the abdomen in the superior midline with the camera trocar, and he was insufflated. A robotic stapler trocar was placed in the right lower quadrant inferior and lateral to the diverting loop ileostomy which was closed with a Prolene suture prior to initiation of surgery and covered with a Tegaderm. Two additional robotic arms were placed in the left side of the abdomen, 1 in the right upper quadrant, an assistant secretary port. He was placed in steep Trendelenburg position. We mobilized the small bowel out of the pelvis and inspected it. There was no injury. There was no evidence of grossly metastatic disease. The colon was retracted anteriorly and the pedicle was identified. We scored this along the mesorectal plane and encircled the vessels, cauterizing them with the LigaSure, dividing them with double and triple whitehead. We did this, ensuring that we were well away from the retroperitoneal structures on the left and the right side. This allowed us to continue our mesorectal dissection distally. We did this as far as we could and then extended this laterally on both sides and anteriorly, scoring the peritoneal reflection. We carried this down to the level we encountered a firm bulky tumor. We did not see any gross extension out of the rectum or perirectal fat. We tried for quite some time to continue our dissection. This was made difficult by the large nature of the colon and rectum, which fully filled the pelvis, and he had a very narrow male pelvis. As such, we felt we were not making any forward progress and concerns with the goal of preserving his sphincter, we elected to make a lower midline incision. The Jose wound protector was placed. Using electrocautery and manual palpation, we continued our dissection all the way down to the pelvic floor. Given the narrow pelvis, a TA stapler would not fit around the bulky tumor at an area distally. As such, an Endo-JASON stapler was used, and multiple fires in the anterior-posterior direction was used to divide this, and the specimen was removed. We did divide proximally prior to this distal dissection after further exposure. We inspected and the tumor was too close our distal margin. As such, we felt we could not get any lower and preserve the sphincter. We discussed that this was a possibility with the patient. As such, we converted from a low anterior a plan for the anastomosis to an abdominoperineal resection. Elliptical incision was made around the anus. After placing his legs in a more elevated position, we carried this through the perirectal fat, dividing the muscle and completed our dissection with our proximal staple line, removing the specimen in its entirety with good margin around the tumor. Noted hemostasis. All the retroperitoneal structures, ureters and iliacs were protected bilaterally. We then reapproximated the fat to the pelvic floor fascia with 0 Vicryl, and the more superficial spaces were closed with 0 Vicryl and the skin was closed with a running 4-0 Monocryl. We then turned our attention back to the abdomen. Drain was placed in the pelvis and the peritoneum was closed over this with a running Vicryl suture after hemostasis was noted and we inspected that the retroperitoneal structures were intact and well preserved. His ileostomy has been managed very well. As such, we elected to leave this and we brought up a mucous fistula given the long defunctionalized limb of colon through the left lower quadrant. The colon was very fatty and very large epiploic appendages, and we had to make a large incision and typical for a mucous fistula, but we were able to mature this after removing the corner of the staple line to allow adequate efflux of mucus and air from the distal colon. At this point, we irrigated with warm saline and changed our gloves. The fascia was closed, the port sites with 0 Vicryl and the fascia was closed with a running #1 looped PDS suture. Irrigated the superficial wounds. His incisions were closed with clips. Dressing was applied. His urine was clear at the end the case. He was awoken and transferred to recovery. I spoke with the family. cc: Luke Ragsdale MD
[2019-12-30] MEDS ORDERED: COREG PO SCH (21:00)
[2019-12-30] MEDS: PRILOSEC PO SCH (22:56)
[2019-12-30] MEDS: PERIDEX MT SCH (22:56)
[2019-12-30] MEDS: HYTRIN PO SCH (22:57)
[2019-12-30] MEDS: ZYRTEC PO SCH (22:57)
[2019-12-30] MEDS: HUMULIN R SUBQ SCH (22:57)
[2019-12-31] MEDS: LR 1,000 ML IV SCH (03:30)
[2019-12-31] MEDS: OFIRMEV 1000 MG/ISOTONIC SOLN 1,000 MG/100 ML BOTTLE IV SCH ×2 (05:53→11:09)
[2019-12-31] MEDS: PERIDEX MT SCH ×2 (08:16→20:12)
[2019-12-31] MEDS: ULTRAM PO PRN ×2 (08:16→18:48)
[2019-12-31] MEDS: HUMULIN R SUBQ SCH ×4 (08:17→20:12)
[2019-12-31] MEDS: LR 1,000 ML ONE (11:45)
[2019-12-31] MEDS ORDERED: NS 500 ML ONE (12:03)
[2019-12-31] MEDS ORDERED: NS 500 ML IV ONE ×2 (14:49→14:50)
[2019-12-31 15:24] LABS: BASO# 0.01 X1000 (0.0-0.2); BASO% 0.2 % (0.0-0.8); EOS# 0.02 X1000 (0.0-0.7); EOS% 0.4 % (0.0-10.0); HEMATOCRIT 23.2 % (42.0-52.0); LYMPH# 1.49 X1000 (1.2-3.4); LYMPH% 26.4 % (20.5-51.1); MCH 26.8 PG (27-31); MCHC 30.2 g/dL (33-37); MCV 88.9 FL (81-99); MONO# 0.36 X1000 (0.11-0.59); MONO% 6.4 % (1.7-9.3); MPV 10.1 FL (7.4-10.4); NEUT# 3.76 X1000 (1.4-6.5); NEUT% 66.6 % (42.2-75.2); PLT 109 X1000 (130-400); RBC 2.61 XMIL (4.7-6.1); RDW 16.2 % (11.5-14.5); WBC 5.64 X1000 (4.8-10.8)
[2019-12-31 15:32] LABS: CALCIUM 7.7 mg/dL (8.8-10.2); CREATININE 1.4 mg/dL (0.7-1.2); POTASSIUM 4.3 mmol/L (3.5-5.1)
--- NOTE | 2019-12-31 16:21 | GENERAL SURGERY PROGRESS NOTE ---
DATE: 12/31/2019 SUBJECTIVE: Feels okay. Drain output is serosanguineous. He has had some serosanguineous drainage from his mucous fistula. His ostomy is functioning. OBJECTIVE: Blood pressure been a little marginal this morning, systolics in the 80s to 90s, but he is asymptomatic, not tachycardic, but he is on beta blockers. Oxygen saturation is in the low 90s. General: He is alert. Abdomen is soft, appropriately tender. Ostomy is pink, viable stool in the bag. LABORATORY DATA: Postoperative labs look okay. His labs were pending. His hematocrit was 31 yesterday evening from 35. His creatinine is 0.6. Glucoses are better but occasionally peaking in the 200s. ASSESSMENT/PLAN: 59-year-old gentleman status post abdominoperineal resection. Dr. Chowdhury ordered a bolus. We will recheck his labs. He did lose quite a bit of blood during surgery yesterday. We will check this. cc: Luke Ragsdale MD
[2019-12-31] MEDS: PRILOSEC PO SCH (20:11)
[2019-12-31] MEDS: ZYRTEC PO SCH (20:12)
[2019-12-31] MEDS: HYTRIN PO SCH (20:13)
[2020-01-01] MEDS: DILAUDID IV PRN ×4 (01:26→21:29)
[2020-01-01] MEDS: LR 1,000 ML IV SCH ×3 (03:54→17:06)
[2020-01-01] MEDS: HUMULIN R SUBQ SCH ×4 (06:49→21:15)
[2020-01-01 08:02] LABS: EOS# 0.03 X1000 (0.0-0.7); EOS% 0.7 % (0.0-10.0); HEMATOCRIT 23.9 % (42.0-52.0); HEMOGLOBIN 7.1 g/dL (14.0-18.0); LYMPH# 0.92 X1000 (1.2-3.4); LYMPH% 20.3 % (20.5-51.1); MCH 26.6 PG (27-31); MCHC 29.7 g/dL (33-37); MCV 89.5 FL (81-99); MONO# 0.39 X1000 (0.11-0.59); MONO% 8.6 % (1.7-9.3); MPV 10.4 FL (7.4-10.4); NEUT% 70.4 % (42.2-75.2); PLT 99 X1000 (130-400); RBC 2.67 XMIL (4.7-6.1); RDW 16.1 % (11.5-14.5); WBC 4.54 X1000 (4.8-10.8)
[2020-01-01 08:16] LABS: AGAP 9; BUN 22 mg/dL (8-22); CALCIUM 7.8 mg/dL (8.8-10.2); CHLORIDE 102 mmol/L (98-107); COSMO 281; CREATININE 0.7 mg/dL (0.7-1.2); ESTIMATED GFR > 60; GLUCOSE 193 mg/dL (70-104); POTASSIUM 4.1 mmol/L (3.5-5.1); SODIUM 136 mmol/L (136-145); TCO2 25 mmol/L (25-35)
[2020-01-01] MEDS: ULTRAM PO PRN (09:46)
[2020-01-01] MEDS: PERIDEX MT SCH ×2 (09:47→21:17)
--- NOTE | 2020-01-01 14:14 | PROGRESS NOTE ---
DATE: 01/01/2020 Mr. Eduard Vasquez 59-year-old overweight white male who is now postop day 2 from an abdominoperineal resection per Dr. Ragsdale. He has metastatic rectal cancer. He has received neoadjuvant chemotherapy. He already had an ileostomy in place and we did an abdominoperineal resection because of a rectal cancer. He has a drain in his pelvis, which is still draining bloody fluid. I changed his lower midline incision. He has a mucous fistula on the left and on the right he has an end ileostomy. He has required blood postoperatively and is still on 125 mL an hour of fluid. His heart rate is 87, blood pressure 120/56, O2 saturation 94%. He is afebrile. He is awake and cooperative. I do not see labs today. His last hematocrit was 24%. BUN and creatinine are 22 and 0.7. PLAN: He will continue a clear liquid diet. Will increase his activity, will try to decrease his IV fluids and will check laboratory data in the morning. cc: MD Luke Diallo MD
[2020-01-01] MEDS: OFIRMEV 1000 MG/ISOTONIC SOLN 1,000 MG/100 ML BOTTLE IV SCH (17:06)
[2020-01-01] MEDS: PRILOSEC PO SCH (21:16)
[2020-01-01] MEDS: ZYRTEC PO SCH (21:16)
[2020-01-01] MEDS: HYTRIN PO SCH (21:16)
[2020-01-01] MEDS: ENTEREG PO SCH (21:29)
[2020-01-02] MEDS: OFIRMEV 1000 MG/ISOTONIC SOLN 1,000 MG/100 ML BOTTLE IV SCH ×5 (01:21→21:42)
[2020-01-02] MEDS: ULTRAM PO PRN (01:41)
[2020-01-02] MEDS: DILAUDID IV PRN ×3 (01:42→16:49)
[2020-01-02] MEDS: HUMULIN R SUBQ SCH ×4 (07:01→21:43)
[2020-01-02 07:52] LABS: AGAP 7; BUN 14 mg/dL (8-22); CALCIUM 7.6 mg/dL (8.8-10.2); CHLORIDE 103 mmol/L (98-107); COSMO 278; CREATININE 0.6 mg/dL (0.7-1.2); ESTIMATED GFR > 60; GLUCOSE 165 mg/dL (70-104); POTASSIUM 3.9 mmol/L (3.5-5.1); SODIUM 137 mmol/L (136-145); TCO2 27 mmol/L (25-35)
[2020-01-02 08:16] LABS: BASO# 0.01 X1000 (0.0-0.2); BASO% 0.3 % (0.0-0.8); EOS# 0.06 X1000 (0.0-0.7); EOS% 2.1 % (0.0-10.0); HEMATOCRIT 22.9 % (42.0-52.0); HEMOGLOBIN 6.8 g/dL (14.0-18.0); LYMPH# 1.12 X1000 (1.2-3.4); LYMPH% 38.9 % (20.5-51.1); MCH 27.2 PG (27-31); MCHC 29.7 g/dL (33-37); MCV 91.6 FL (81-99); MONO# 0.21 X1000 (0.11-0.59); MONO% 7.3 % (1.7-9.3); MPV 10.6 FL (7.4-10.4); NEUT# 1.48 X1000 (1.4-6.5); NEUT% 51.4 % (42.2-75.2); PLT 96 X1000 (130-400); RDW 15.7 % (11.5-14.5); WBC 2.88 X1000 (4.8-10.8)
[2020-01-02] MEDS: ENTEREG PO SCH ×2 (09:46→21:43)
[2020-01-02] MEDS: PERIDEX MT SCH ×2 (09:46→21:42)
[2020-01-02] MEDS: LR 1,000 ML IV SCH ×2 (09:47→15:41)
--- NOTE | 2020-01-02 10:56 | PROGRESS NOTE ---
DATE: 01/02/2020 Mr. Eduard Vasquez is postop day 3 from an abdominoperineal resection per Dr. Ragsdale. He has required 1 unit of blood transfused after surgery. His hematocrit is stable at 23%. He is still getting some bloody drainage from a Brock drain that is low in his pelvis. He is awake, cooperative, in no distress. He has had some ileostomy output. His heart rate is 76 to 93, O2 saturation 95%. His incisions seem to be healing well. His white blood cell count is low. His BUN and creatinine are 14 and 0.6. He has been placed on a clear liquid diet. He continues to have IV fluids going. We will check his blood count again tomorrow. cc: MD Luke Diallo MD
[2020-01-02] MEDS: HYTRIN PO SCH (21:42)
[2020-01-02] MEDS: ZYRTEC PO SCH (21:42)
[2020-01-02] MEDS: PRILOSEC PO SCH (21:43)
[2020-01-03] MEDS: OFIRMEV 1000 MG/ISOTONIC SOLN 1,000 MG/100 ML BOTTLE IV SCH ×4 (04:12→23:00)
[2020-01-03] MEDS: LR 1,000 ML IV SCH (04:12)
[2020-01-03] MEDS: DILAUDID IV PRN ×3 (04:44→19:45)
[2020-01-03] MEDS: HUMULIN R SUBQ SCH ×3 (07:00→19:14)
[2020-01-03 07:08] LABS: AGAP 10; ALBUMIN 2.8 g/dL (3.5-5.0); ALKALINE PHOSPHATASE 268 U/L (32-122); BUN 11 mg/dL (8-22); CALCIUM 8.2 mg/dL (8.8-10.2); CHLORIDE 104 mmol/L (98-107); COSMO 284; CREATININE 0.6 mg/dL (0.7-1.2); ESTIMATED GFR > 60; GLUCOSE 150 mg/dL (70-104); GOT 13 U/L (10-34); GPT 9 U/L (10-44); POTASSIUM 3.9 mmol/L (3.5-5.1); SODIUM 141 mmol/L (136-145); TCO2 27 mmol/L (25-35); TOTAL BILIRUBIN 0.47 mg/dL (0.20-1.00); TOTAL PROTEIN 5.5 g/dL (6.3-8.3)
[2020-01-03 07:37] LABS: EOS# 0.07 X1000 (0.0-0.7); EOS% 3.3 % (0.0-10.0); HEMATOCRIT 22.4 % (42.0-52.0); HEMOGLOBIN 6.8 g/dL (14.0-18.0); LYMPH# 0.65 X1000 (1.2-3.4); LYMPH% 30.2 % (20.5-51.1); MCH 27.4 PG (27-31); MCHC 30.4 g/dL (33-37); MCV 90.3 FL (81-99); MONO# 0.12 X1000 (0.11-0.59); MONO% 5.6 % (1.7-9.3); NEUT# 1.31 X1000 (1.4-6.5); NEUT% 60.9 % (42.2-75.2); PLT 126 X1000 (130-400); RBC 2.48 XMIL (4.7-6.1); RDW 15.3 % (11.5-14.5); WBC 2.15 X1000 (4.8-10.8)
[2020-01-03] MEDS: PERIDEX MT SCH ×2 (10:02→19:46)
[2020-01-03] MEDS: ENTEREG PO SCH ×2 (10:02→19:46)
--- NOTE | 2020-01-03 11:54 | GENERAL SURGERY PROGRESS NOTE ---
DATE: 01/03/2020 SUBJECTIVE: Doing well. His ostomy is functioning. He is tolerating a diet. He is a little weak, but he is ambulating. Urine output has been adequate. OBJECTIVE: White count 2, hematocrit is down to 22, platelets 126,000. Glucose has been 140s. On exam, his abdomen is soft. Incision intact. Mucous fistula has some feculent type drainage, but mostly out of his ileostomy. Creatinine 0.6. ASSESSMENT AND PLAN: This is a 59-year-old gentleman, status post abdominoperineal resection. We will give 1 unit of blood today. We will Hep-Lock his intravenous fluids, advance diet to soft, discontinue his Vasquez. Continue on prophylactic Lovenox and plan on home in the next 24 to 48 hours if he does well. cc: Luke Ragsdale MD
[2020-01-03] MEDS ORDERED: SALINE LOCK IV FLUID XX ONE (12:00)
[2020-01-03] MEDS ORDERED: NS 500 ML IV SCH (16:00)
[2020-01-03] MEDS: HYTRIN PO SCH (19:35)
[2020-01-03] MEDS: PRILOSEC PO SCH (19:46)
[2020-01-03] MEDS: ZYRTEC PO SCH (19:47)
[2020-01-04] MEDS: OFIRMEV 1000 MG/ISOTONIC SOLN 1,000 MG/100 ML BOTTLE IV SCH ×2 (04:22→09:56)
[2020-01-04] MEDS: ZYRTEC PO SCH (07:07)
[2020-01-04] MEDS: PRILOSEC PO SCH (07:07)
[2020-01-04] MEDS: ENTEREG PO SCH ×2 (07:07→09:57)
[2020-01-04] MEDS: PERIDEX MT SCH ×2 (07:08→09:58)
[2020-01-04] MEDS: HUMULIN R SUBQ SCH ×3 (09:08→12:12)
[2020-01-04 09:14] LABS: EOS# 0.06 X1000 (0.0-0.7); EOS% 1.9 % (0.0-10.0); HEMATOCRIT 27.9 % (42.0-52.0); HEMOGLOBIN 8.8 g/dL (14.0-18.0); LYMPH# 1.09 X1000 (1.2-3.4); LYMPH% 34.5 % (20.5-51.1); MCHC 31.5 g/dL (33-37); MCV 88.9 FL (81-99); MONO# 0.16 X1000 (0.11-0.59); MONO% 5.1 % (1.7-9.3); MPV 8.8 FL (7.4-10.4); NEUT# 1.85 X1000 (1.4-6.5); NEUT% 58.5 % (42.2-75.2); PLT 160 X1000 (130-400); RBC 3.14 XMIL (4.7-6.1); RDW 15.3 % (11.5-14.5); WBC 3.16 X1000 (4.8-10.8)
[2020-01-04 11:51] VITALS: BP 142/68
[2020-01-04] MEDS: DILAUDID IV PRN (14:05)
--- NOTE | 2020-01-05 09:30 | DISCHARGE SUMMARY ---
ADMISSION DATE: 12/30/2019 DISCHARGE DATE: 01/04/2020 ADMITTING DIAGNOSIS: Rectal carcinoma. POSTOPERATIVE DIAGNOSIS: Rectal carcinoma. PROCEDURE PERFORMED: Laparoscopic-assisted abdominoperineal resection. DATE OF PROCEDURE: 12/30/2019. HISTORY OF PRESENT ILLNESS: This is a 59-year-old gentleman who is status post neoadjuvant therapy for metastatic colorectal carcinoma. He had good clinical response of his metastatic lesions, and resection of the rectal tumor was indicated. HOSPITAL COURSE: The patient was taken to the operating room on the day of his surgery for above procedure. For details, please see dictated operative note. Postoperatively, he was admitted. His Vasquez was continued for 3 days postoperatively given the low pelvic dissection, and it was removed. He was able to void without difficulty. His diet was advanced. His ileostomy is functioning well. He did have some drainage from perineal incision. He was continued on prophylactic Lovenox. His hematocrit dropped on postoperative day 1, and was an appropriate drop, but he was transfused a unit of blood on postop day 1, and then a unit of blood on postop day 4, and he had a good response to this and he felt better. He was ambulating. He was voiding. His incisions, both perineal and abdominal incisions, were intact. His ostomy is pink, viable. His PAUL drain was serosanguineous. His labs were appropriate. He was felt safe for discharge. His pain was controlled. Followup appropriate is with me in the next few days for his drain to be removed. Discharge instructions were given in written and verbal format. DISCHARGE DIET: GI soft. DISCHARGE ACTIVITY: Avoid heavy lifting. DISCHARGE MEDICATIONS: He will continue his medication, and take his Percocet, which he has already. cc: Luke Ragsdale MD [facility]
== END 2020-01-04 17:06 | disposition home or self-care (01) | DRG 330 ==
LOC: SURHOLD 07:00 → 4N 10:00
PROVIDERS: ADMIT Surgery; ATTEND Surgery